=== PATIENT | female | born 1950 | race Caucasian/White ===

== ENCOUNTER 2017-08-20 16:45 | Inpatient (IN) | payer MEDICARE, MEDICAID ==
[2017-08-20 16:46] VITALS: BMI 37.8
[2017-08-20 17:08] VITALS: RESP 20
--- NOTE | 2017-08-20 18:18 | C.PDOC ---
History Of Present Illness 67-year-old female, PMHx includes Diabetes, presents to the emergency department with complaints of facial swelling and pain. Patient states she had a pimple with alarcon on left frontal scalp, which he popped and removed pus from, multiple times over the past twenty-four hours. Patient states that when she woke up this morning, she developed swelling, associated with pain and pressure in her left eye. Denies any nausea/vomiting, dizziness, fevers, chills , or any other associated symptoms. No other complaints at this time. Time Seen by Provider: 08/20/17 17:40 Chief Complaint (Nursing): Headache History Per: Patient, Family History/Exam Limitations: no limitations Onset/Duration Of Symptoms: Hrs Current Symptoms Are (Timing): Still Present Past Medical History Reviewed: Historical Data, Nursing Documentation, Vital Signs Vital Signs: Last Vital Signs Temp 99.3 F 08/20/17 17:06 Pulse 78 08/20/17 17:06 Resp 20 08/20/17 17:06 BP 186/75 H 08/20/17 17:06 Pulse Ox 100 08/20/17 18:44 - Medical History PMH: Anxiety, Arthritis, Depression, Diabetes, Gall Bladder Disease, HTN, Hypercholesterolemia Surgical History: Cholecystectomy - [facility] Procedures INTRAOPER CHOLANGIOGRAM (05/13/14) LAPAROSCOPIC CHOLECYSTECTOMY (05/13/14) Family History: States: No Known Family Hx - Social History Hx Tobacco Use: No Hx Alcohol Use: No Hx Substance Use: No - Immunization History Hx Tetanus Toxoid Vaccination: No Hx Influenza Vaccination: No Hx Pneumococcal Vaccination: No Review Of Systems Except As Marked, All Systems Reviewed And Found Negative. Constitutional: Negative for: Fever, Chills Respiratory: Negative for: Cough, Shortness of Breath Gastrointestinal: Negative for: Nausea, Vomiting Musculoskeletal: Negative for: Back Pain Skin: Negative for: Rash Neurological: Positive for: Headache. Negative for: Weakness, Numbness, Dizziness Physical Exam - Physical Exam Appears: Non-toxic, No Acute Distress Skin: Warm, Dry, No Rash Head: Swelling (left parietal/temporal area wutg edema and cellulitis. No focal abscess) Eye(s): bilateral: Normal Inspection, PERRL, EOMI Nose: Normal Oral Mucosa: Moist Neck: Normal ROM Chest: Symmetrical Cardiovascular: Rhythm Regular, No Murmur Respiratory: Normal Breath Sounds, No Accessory Muscle Use Extremity: Normal ROM Neurological/Psych: Oriented x3, Normal Speech ED Course And Treatment - Laboratory Results Result Diagrams: 08/20/17 18:38 O2 Sat by Pulse Oximetry: 100 Progress - Data Reviewed Data Reviewed: Lab, Diagnostic imaging Medical Decision Making Medical Decision Making: Plan: * CT Head * EKG * BMP * CBC * Chest X-Ray * Tylenol, Toradol, Morphine, IVFs * Blood Culture * Reassess and Disposition Disposition - Disposition Disposition Time: 19:00 Condition: STABLE Forms: [employer] (Polish) - Clinical Impression Clinical Impression: Cellulitis of scalp, Uncontrolled diabetes mellitus - Scribe Statement The provider has reviewed the documentation as recorded by the Scribe (Vinod Patton) All medical record entries made by the Scribe were at my direction and personally dictated by me. I have reviewed the chart and agree that the record accurately reflects my personal performance of the history, physical exam, medical decision making, and the department course for this patient. I have also personally directed, reviewed, and agree with the discharge instructions and disposition. Physician Patient Turnover Patient Signed Over To: Ed Parsons Handoff Comments: FU CT, LABS, DISPO
[2017-08-20 18:32] LABS: VENOUS BLOOD GAS BASE EXCESS 1.5 mmol/L (0.0-2.0); VENOUS BLOOD GAS PCO2 46 mmHg (40-60); VENOUS BLOOD PH 7.38 (7.32-7.43)
[2017-08-20] MEDS ORDERED: (Novolin R) Insulin Human Regular 100 units/ml vial IV STA (18:41)
[2017-08-20 18:49] LABS: CHLORIDE 95 mmol/L (98-107); POTASSIUM 3.4 mmol/L (3.6-5.2); SODIUM 137 mmol/L (132-148)
[2017-08-20 18:52] LABS: BLOOD UREA NITROGEN 12 mg/dL (7-17); CARBON DIOXIDE 24 mmol/L (22-30); GFR AFRICAN-AMERICAN > 60
[2017-08-20 18:53] LABS: CALCIUM 9.3 mg/dl (8.6-10.4)
[2017-08-20 18:54] LABS: GLUCOSE,RANDOM 494 mg/dL (65-105)
[2017-08-20] MEDS ORDERED: ceFAZolin 1 gm FROZEN Premix 1 GM/50 ML ML IVPB ONE (18:55)
[2017-08-20] MEDS ORDERED: (Novolin R) Insulin Human Regular 100 units/ml vial ONE (18:55)
[2017-08-20] MEDS ORDERED: Sodium Chloride 0.9% 1,000 ML ONE (18:55)
[2017-08-20 18:58] LABS: BASO % 0.6 % (0.0-2.0); EOS # 0.1 K/uL (0.0-0.7); HEMATOCRIT 33.6 % (34.0-47.0); LYMPH # 1.3 K/uL (1.0-4.3); LYMPH % 17.6 % (20.0-40.0); MEAN CORPUSCULAR HEMOGLOBIN 26.2 pg (27.0-31.0); MEAN CORPUSCULAR HGB CONC 33.1 g/dL (33.0-37.0); MEAN PLATELET VOLUME 7.9 fL (7.2-11.7); MONO # 0.3 K/uL (0.0-0.8); MONO % 4.7 % (0.0-10.0); RED CELL DISTRIBUTION WIDTH 14.4 % (11.5-14.5); WHITE BLOOD COUNT 7.2 K/uL (4.8-10.8)
[2017-08-20] MEDS: Sodium Chloride 0.9% 1,000 ML IV SCH (19:06)
[2017-08-20] MEDS ORDERED: Iodixanol 320 MG/ML 100 ML BOTTLE IV ONE (19:31)
--- NOTE | 2017-08-20 22:29 | CP.PCM.HP ---
History of Present Illness - History of Present Illness History of Present Illness: 66-year-old female with PMHanxiety, arthritis, depression, DM, GB disease, HTN and hypercholesterolemia presents to the ER for C/Ofacial swelling. C/Oa pimple with a white spot on the left scalp for a few days, which has pus discharge from it. Since last couple of days it has been producing pus discharge is persistent from it. Today morning when she woke up she noticed her face to be completely swollen and painful. No C/Ofever, nausea, vomiting, headache, confusion, hemoptysis, hematemesis. Past Patient History - Past Medical History & Family History Past Medical History?: Yes - Past Social History Smoking Status: Never Smoked - CARDIAC Hx Hypercholesterolemia: Yes Hx Hypertension: Yes - PULMONARY Hx Respiratory Disorders: No - NEUROLOGICAL Hx Neurological Disorder: No - HEENT Hx HEENT Problems: No - ENDOCRINE/METABOLIC Hx Endocrine Disorders: Yes Hx Diabetes Mellitus Type 2: Yes - HEMATOLOGICAL/ONCOLOGICAL Hx Blood Disorders: No - INTEGUMENTARY Hx Dermatological Problems: No - MUSCULOSKELETAL/RHEUMATOLOGICAL Hx Arthritis: Yes - GASTROINTESTINAL Hx Gall Bladder Disease: Yes - GENITOURINARY/GYNECOLOGICAL Hx Genitourinary Disorders: No - PSYCHIATRIC Hx Anxiety: Yes Hx Depression: Yes Hx Substance Use: No - SURGICAL HISTORY Hx Cholecystectomy: Yes - ANESTHESIA Hx Anesthesia: Yes Hx Anesthesia Reactions: No Hx Malignant Hyperthermia: No Meds Home Medications: Home Medication List Medication Instructions Recorded Confirmed Type Clindamycin [Cleocin] 300 mg PO TID #15 cap 08/29/17 Rx Famciclovir [Famvir] 500 mg PO TID #21 tab 08/29/17 Rx traMADol [Ultram] 50 mg PO TID PRN #15 tab 08/29/17 Rx Allergies/Adverse Reactions: Allergies Allergy/AdvReac Type Severity Reaction Status Date / Time No Known Allergies Allergy Verified 08/20/17 17:34 Physical Exam - Constitutional Appears: Well - Head Exam Head Exam: ATRAUMATIC, NORMAL INSPECTION, NORMOCEPHALIC - Eye Exam Eye Exam: EOMI, Normal appearance, PERRL - ENT Exam ENT Exam: Mucous Membranes Moist, Normal Exam - Neck Exam Neck exam: Positive for: Normal Inspection - Respiratory Exam Respiratory Exam: Decreased Breath Sounds - Cardiovascular Exam Cardiovascular Exam: REGULAR RHYTHM - GI/Abdominal Exam GI & Abdominal Exam: Diminished Bowel Sounds - Rectal Exam Rectal Exam: Deferred Results - Vital Signs Recent Vital Signs: Last Vital Signs Temp 98.4 F 08/20/17 21:44 Pulse 72 08/20/17 21:44 Resp 20 08/20/17 21:44 BP 134/75 08/20/17 21:44 Pulse Ox 100 08/20/17 21:44 - Labs Result Diagrams: 08/29/17 11:46 08/29/17 11:46 Labs: Laboratory Results - last 24 hr 08/20/17 08/20/17 08/20/17 18:29 18:38 18:38 WBC 7.2 RBC 4.25 Hgb 11.1 Hct 33.6 L MCV 79.0 L MCH 26.2 L MCHC 33.1 RDW 14.4 Plt Count 246 MPV 7.9 Neut % (Auto) 76.1 H Lymph % (Auto) 17.6 L [place] % (Auto) 4.7 Eos % (Auto) 1.0 Baso % (Auto) 0.6 Neut # 5.5 Lymph # 1.3 [place] # 0.3 Eos # 0.1 Baso # 0.0 pO2 30 VBG pH 7.38 VBG pCO2 46 VBG HCO3 25.0 VBG Total CO2 28.6 H VBG O2 Sat (Calc) 68.5 H VBG Base Excess 1.5 VBG Potassium 3.7 Sodium 137.0 137 Chloride 103.0 95 L Glucose 480 H* Lactate 3.6 H Crit Value Called To klarissa Grayson/rn Crit Value Called By Ines theodore rcp Crit Value Read Back Y Blood Gas Notified Time 1832 Potassium 3.4 L Carbon Dioxide 24 Anion Gap 21 H BUN 12 Creatinine 0.8 Est GFR ( Amer) > 60 Est GFR (Non-Af Amer) > 60 POC Glucose (mg/dL) Random Glucose 494 H* D Calcium 9.3 Venous Blood Potassium 3.7 08/20/17 21:37 WBC RBC Hgb Hct MCV MCH MCHC RDW Plt Count MPV Neut % (Auto) Lymph % (Auto) [place] % (Auto) Eos % (Auto) Baso % (Auto) Neut # Lymph # [place] # Eos # Baso # pO2 VBG pH VBG pCO2 VBG HCO3 VBG Total CO2 VBG O2 Sat (Calc) VBG Base Excess VBG Potassium Sodium Chloride Glucose Lactate Crit Value Called To Crit Value Called By Crit Value Read Back Blood Gas Notified Time Potassium Carbon Dioxide Anion Gap BUN Creatinine Est GFR ( Amer) Est GFR (Non-Af Amer) POC Glucose (mg/dL) 462 H* Random Glucose Calcium Venous Blood Potassium Assessment & Plan (1) Cellulitis of scalp Status: Acute (2) Uncontrolled diabetes mellitus Status: Acute (3) Anxiety Status: Acute (4) Chest pain in adult Status: Acute (5) Cholecystitis Status: Acute (6) Depression with somatization Status: Acute (7) Diabetes mellitus Status: Acute (8) Muscle weakness Status: Acute (9) Obstructive sleep apnea of adult Status: Acute (10) Panic anxiety syndrome Status: Acute (11) Skin irritation Status: Acute (12) Syncope Status: Acute
[2017-08-20] MEDS ORDERED: Piperacill/Tazo 3.375gm in Dex 3.375 GM/50 ML BAG IVPB SCH (22:45)
[2017-08-21] MEDS: Piperacill/Tazo 3.375gm in Dex 3.375 GM/50 ML BAG IVPB SCH ×5 (01:00→23:58)
[2017-08-21] MEDS: (Novolog) Insulin Aspart, Recombinant 100 u/ml 10 ml vial SC SCH ×4 (08:11→22:00)
--- NOTE | 2017-08-21 08:58 | RAD ---
PROCEDURE: CHEST RADIOGRAPH, 1 VIEW HISTORY: Medical clearance COMPARISON: None available. FINDINGS: LUNGS: Mild venous congestion. Right hilar prominence. Biapical pleural thickening. PLEURA: No pneumothorax or pleural fluid seen. CARDIOVASCULAR: Tortuous ectatic aorta. Calcification at the aortic knob. Mild cardiomegaly. OSSEOUS STRUCTURES: No significant abnormalities. VISUALIZED UPPER ABDOMEN: Normal. OTHER FINDINGS: None. IMPRESSION: Mild venous congestion. Right hilar prominence. Biapical pleural thickening.
[2017-08-21] MEDS: Sodium Chloride 0.9% 1,000 ML IV SCH ×3 (09:00→23:53)
--- NOTE | 2017-08-21 09:24 | CT ---
PROCEDURE: CT NECK WITH CONTRAST HISTORY: L TEMP PARIETAL SWELLING HO DM RO ABSCESS COMPARISON: None TECHNIQUE: CT of the neck with intravenous contrast. Coronal and sagittal reformats generated. Intravenous contrast dose: Visipaque 320, 100 cc. Radiation dose: DLP 461.85 mGy-cm This CT exam was performed using one or more of the following dose reduction techniques: Automated exposure control, adjustment of the mA and/or kV according to patient size, and/or use of iterative reconstruction technique. FINDINGS: NASOPHARYNX: Unremarkable. SUPRAHYOID NECK: Unremarkable oropharynx, oral cavity, parapharyngeal space and retropharyngeal space. INFRAHYOID NECK: Unremarkable larynx, hypopharynx, and supraglottic space. Vocal cords intact. MASS: 3.8 cm left thyroid lobe mass. Follow-up ultrasound advised. GLANDS: Parotid and submandibular glands unremarkable. Normal size thyroid gland, without nodule. LYMPH NODES: Normal. No lymphadenopathy. CERVICAL SPINE: No fracture or focal lesion. VASCULAR STRUCTURES: Unremarkable. OTHER FINDINGS: Note is made of marked dermal thickening at the left frontoparietal distribution extending to minimally involve the septal scalp with likely underlying phlegmon involving the deep subcutaneous fat at the same distribution of the scalp. Lesser subcutaneous changes extend to overlie the left base including the temporal and perirectal region and lateral parity orbital soft tissue in the preseptal space only. No postseptal involvement. Left posterior neck soft tissues are minimally involved as well No obvious abscess or emphysematous changes related. Clinically correlate further. IMPRESSION: Minimal left lateral periorbital cellulitis with prominent left scalp convexity cellulitis appreciated primarily involving the frontal parietal distribution without obvious abscess appreciable. Periorbital cellulitis is preseptal without postseptal involvement as imaged. Please see discussion above.
[2017-08-21] MEDS ORDERED: HYDROmorphone 0.5 mg/0.5 ml ISec IVP PRN (10:00)
[2017-08-21] MEDS: Enoxaparin 40 mg Syringe SC SCH (10:01)
[2017-08-21] MEDS: NIFEdipine 90 mg ER Tab PO SCH (10:01)
--- NOTE | 2017-08-21 10:47 | CP.PCM.PN ---
<Ankit Bowers - Last Filed: 08/21/17 13:20> Subjective - Date & Time of Evaluation Date of Evaluation: 08/21/17 Time of Evaluation: 10:43 - Subjective Subjective: PGY-[address] Lau's service: Pt seen and examined at bedside. Patient found sitting at bedside, agitated. Nursing reports no acute events overnight. She reports pain in left scalp area is getting worse "and no one doing anything about it." Patient reassured that antibiotics were running. Patient states she cannot wear glasses due to pain. She denies vision changes, fever, chills, nausea, abdominal pain, N/V/D/C. Patient is a 67-year-old female, with PMHx of type two diabetes mellitus, anxiety, presents to the emergency department with complaints of facial swelling and pain. Patient states she had a pimple with alarcon on left frontal scalp, which he popped and removed pus from, multiple times over the past twenty-four hours. Patient states that when she woke up this morning, she developed swelling, associated with pain and pressure in her left eye. Denies any nausea/vomiting, dizziness, fevers, chills, or any other associated symptoms. No other complaints at this time. Objective - Vital Signs/Intake and Output Vital Signs (last 24 hours): Temp Pulse Resp BP Pulse Ox 98.1 F 71 20 153/77 H 96 08/21/17 00:00 08/21/17 00:00 08/21/17 00:00 08/21/17 00:00 08/21/17 00:00 Intake and Output: 08/21/17 08/21/17 06:59 18:59 Intake Total 1500 Balance 1500 - Medications Medications: Current Medications Alprazolam (Xanax) 0.5 mg PO HS PRN PRN Reason: Anxiety Aspirin (Aspirin Chewable) 81 mg PO DAILY [facility] Last Admin: 08/21/17 10:01 Dose: 81 mg Clopidogrel Bisulfate (Plavix) 75 mg PO DAILY [facility] Last Admin: 08/21/17 10:01 Dose: 75 mg Enoxaparin Sodium (Lovenox) 40 mg SC DAILY [facility] Last Admin: 08/21/17 10:01 Dose: 40 mg Famotidine (Pepcid) 20 mg PO BID [facility] Last Admin: 08/21/17 10:01 Dose: 20 mg Fenofibrate (Tricor) 145 mg PO DAILY [facility] Last Admin: 08/21/17 10:01 Dose: 145 mg Glimepiride (Amaryl) 4 mg PO BID [facility] Last Admin: 08/21/17 10:01 Dose: 4 mg Home Med (Novolog Mix 70/30) 25 units SC BID PRN PRN Reason: Serum glucose Hydromorphone HCl (Dilaudid) 1 mg IVP Q8H PRN PRN Reason: Pain, severe (8-10) Last Admin: 08/21/17 10:02 Dose: 1 mg Sodium Chloride (Sodium Chloride 0.9%) 1,000 mls @ 200 mls/hr IV .Q5H [facility] Last Admin: 08/21/17 09:00 Dose: 200 mls/hr Piperacillin Sod/Tazobactam Sod (Zosyn 3.375 Gm Iv Premix) 3.375 gm in 50 mls @ 100 mls/hr IVPB Q6 [facility] Last Admin: 08/21/17 06:10 Dose: 100 mls/hr Ibuprofen (Motrin Tab) 400 mg PO TID PRN PRN Reason: Pain, moderate (4-7) Insulin Aspart (Novolog) 0 unit SC ACHS [facility] PRN Reason: Protocol Last Admin: 08/21/17 08:11 Dose: Not Given Insulin Glargine (Lantus) 15 unit SC HS [facility] Methadone HCl (Methadone) 10 mg PO BID PRN PRN Reason: Pain, severe (8-10) Last Admin: 08/21/17 00:05 Dose: 10 mg Nifedipine (Procardia Xl) 90 mg PO DAILY [facility] Last Admin: 08/21/17 10:01 Dose: 90 mg Pneumococcal Polyvalent Vaccine (Pneumovax 23 Vaccine) 0.5 ml IM .ONCE ONE Stop: 08/22/17 10:01 Rosuvastatin Calcium (Crestor) 10 mg PO HS [facility] Sertraline HCl (Zoloft) 100 mg PO DAILY [facility] Last Admin: 08/21/17 10:01 Dose: 100 mg Sitagliptin Phosphate (Januvia) 100 mg PO DAILY [facility] Last Admin: 08/21/17 10:12 Dose: 100 mg - Labs Labs: 08/20/17 18:38 08/20/17 18:38 - Constitutional Appears: Non-toxic, No Acute Distress - Head Exam Head Exam: ATRAUMATIC. absent: NORMAL INSPECTION Additional comments: Left parietal/temporal area - edema - no crepitus, no abscess - Eye Exam Eye Exam: EOMI. absent: Scleral icterus Pupil Exam: PERRL - ENT Exam ENT Exam: Mucous Membranes Moist - Neck Exam Neck Exam: Full ROM - Respiratory Exam Respiratory Exam: Clear to Ausculation Bilateral, NORMAL BREATHING PATTERN. absent: Rales, Rhonchi, Wheezes - Cardiovascular Exam Cardiovascular Exam: REGULAR RHYTHM, +S1, +S2 - GI/Abdominal Exam GI & Abdominal Exam: Soft, Normal Bowel Sounds. absent: Tenderness - Extremities Exam Extremities Exam: Normal Inspection. absent: Pedal Edema - Back Exam Back Exam: absent: CVA tenderness (L), CVA tenderness (R) - Neurological Exam Neurological Exam: Alert, Awake, Oriented x3 - Psychiatric Exam Psychiatric exam: Normal Affect, Normal Mood - Skin Skin Exam: Normal Color, Warm Additional comments: except noted in facial area Assessment and Plan - Assessment and Plan (Free Text) Plan: Valeria-orbital cellulitis Admit to med-surg CT Neck soft tissue (08/21/17): Minimal left lateral periorbital cellulitis with prominent left scalp convexity cellultiis primairily involving the frontal parietal distribution without obvious abscess. Cellitius is preseptal without post-septal involvement (see full report). Zosyn 3.375 gm IV Q6H (first dose: 08/21/17) - Cefazolin given once in ED Dr. Montalvo, ID independent crop consultant, hep appreciated - Start Acyclovir 500mg IV Q8H - Start Vancomycin 1gm IV Q12H - Droplet/Contact Isolation per ID Dilaudid 1mg IVP q4H PRN for pain f/u blood culture CAD Plavix 75mg PO Daily Crestor 10mg PO HS ASA 81mg PO Daily - f/u Lipid Panel Type two diabetes mellitus Accuchecks Amaryl 4mg PO BID Januvia 100mg PO Daily Novolog 70/30 25 units SC BID Lantus 15 units SC HS ISS - aspart -f/u A1C Hypertriglyceridemia Tricor 145mg PO Daily Depression Zoloft 100mg PO Daily Prophylaxis Lovenox 40mg SC Daily Pepcid 20mg PO BID Ankit Bowers PGY-2 Discussed with attending. All medical managment per Dr. Lester Lau. <Sinai Lau - Last Filed: 10/04/17 18:33> Objective - Vital Signs/Intake and Output Vital Signs (last 24 hours): Temp Pulse Resp BP Pulse Ox 99.2 F 60 20 149/75 95 08/29/17 08:17 08/29/17 08:17 08/29/17 08:17 08/29/17 08:17 08/29/17 08:17 - Labs Labs: 08/29/17 11:46 08/29/17 11:46 Assessment and Plan (1) Cellulitis of scalp Status: Acute (2) Uncontrolled diabetes mellitus Status: Acute (3) Anxiety Status: Acute (4) Chest pain in adult Status: Acute (5) Cholecystitis Status: Acute (6) Depression with somatization Status: Acute (7) Diabetes mellitus Status: Acute (8) Muscle weakness Status: Acute (9) Obstructive sleep apnea of adult Status: Acute (10) Panic anxiety syndrome Status: Acute (11) Skin irritation Status: Acute (12) Syncope Status: Acute Attending/Attestation - Attestation I have personally seen and examined this patient.: Yes I have fully participated in the care of the patient.: Yes I have reviewed all pertinent clinical information, including history, physical exam and plan: Yes Notes (Text): CT scan of neck suggestive of left lateral periorbital cellulitis with prominent left scalp cellulitis primary involving the frontal parietal distribution. Random blood sugar on admission was 480. Increased lactate at 3.6. ID consult done. Advised to start acyclovir and vancomycin. Continue piperacillin and tazobactam. Continue aspirin, antidiabetic medications, hypo-lipidemic medications and medications for depression.
[2017-08-21] MEDS ORDERED: (Novolog) Insulin Aspart, Recombinant 100 u/ml 10 ml vial SC SCH (12:00)
--- NOTE | 2017-08-21 12:28 | CP.PCM.CON ---
History of Present Illness - History of Present Illness History of Present Illness: 67-year-old female, PMHx includes Diabetes, presents to the emergency department with complaints of facial swelling and pain. Patient states she had a pimple with alarcon on left frontal scalp, which he popped and removed pus from, multiple times over the past twenty-four hours. Patient states that when she woke up this morning, she developed swelling, associated with pain and pressure in her left eye. Denies any nausea/vomiting, dizziness, fevers, chills , or any other associated symptoms. No other complaints at this time. - Medical History PMH: Anxiety, Arthritis, Depression, Diabetes, Gall Bladder Disease, HTN, Hypercholesterolemia Surgical History: Cholecystectomy - [facility] Procedures INTRAOPER CHOLANGIOGRAM (05/13/14) LAPAROSCOPIC CHOLECYSTECTOMY (05/13/14) Review of Systems - Constitutional Constitutional: As Per HPI - EENT Eyes: absent: As Per HPI, Blind Spots, Blurred Vision, Change in Vision, Decreased Night Vision, Diplopia, Discharge, Dry Eye, Exophthalmos, Floaters, Irritation, Itchy Eyes, Loss of Peripheral Vision, Pain, Photophobia, Requires Corrective Lenses, Sees Flashes, Spots in Vision, Tunnel Vision, Other Visual Disturbances, Loss of Vision, Other Ears: absent: As Per HPI, Decreased Hearing, Ear Discharge, Ear Pain, Tinnitus, Abnormal Hearing, Disequilibrium, Dizziness, Other Nose/Mouth/Throat: absent: As Per HPI, Epistaxis, Nasal Congestion, Nasal Discharge, Nasal Obstruction, Nasal Trauma, Nose Pain, Post Nasal Drip, Sinus Pain, Sinus Pressure, Bleeding Gums, Change in Voice, Dental Pain, Dry Mouth, Dysphagia, Halitosis, Hoarsness, Lip Swelling, Mouth Lesions, Mouth Pain, Odynophagia, Sore Throat, Throat Swelling, Tongue Swelling, Facial Pain, Neck Pain, Neck Mass, Other - Breasts Breasts: absent: As Per HPI, Change in Shape, Mass, Pain, Nipple Discharge, Nipple Inversion, Skin Changes, Swelling, Other - Cardiovascular Cardiovascular: absent: As Per HPI, Acrocyanosis, Chest Pain, Chest Pain at Rest , Chest Pain with Activity, Claudication, Diaphoresis, Dyspnea, Dyspnea on Exertion, Edema, Irregular Heart Rhythm, Pain Radiating to Arm/Neck/Jaw, Leg Edema, Leg Ulcers, Lightheadedness, Orthopnea, Palpitations, Paroxysmal Nocturnal Dyspnea, Pedal Edema, Radiating Pain, Rapid Heart Rate, Slow Heart Rate, Syncope, Other - Respiratory Respiratory: absent: As Per HPI, Cough, Dyspnea, Hemoptysis, Dyspnea on Exertion , Wheezing, Snoring, Stridor, Pain on Inspiration, Chest Congestion, Excessive Mucous Production, Change in Mucous Color, Pain with Coughing, Other - Gastrointestinal Gastrointestinal: absent: As Per HPI, Abdominal Pain, Belching, Bloating, Change in Bowel Habits, Change in Stool Character, Coffee Ground Emesis, Constipation, Cramping, Diarrhea, Dyspepsia, Dysphagia, Early Satiety, Excessive Flatus, Fecal Incontinence, Heartburn, Hematemesis, Hematochezia, Loose Stools, Melena, Nausea, Odynophagia, Temesmus, Vomiting, Other - Genitourinary Genitourinary: absent: As Per HPI, Change in Urinary Stream, Difficulty Urinating, Dysuria, Flank Pain, Hematuria, Pyuria, Nocturia, Urinary Incontinence, Urinary Frequency, Urinary Hesitance, Urinary Urgency, Voiding Freq/Small Amts, Freq UTI, Hx Renal/Bladder Calculi, Hx /Renal Surgery, Bladder Distension, Other - Reproductive: Female Reproductive:Female: absent: As Per HPI, Amenorrhea, Amenorrhea/ Control, Currently Menstual, Cycle <21 Days, Cycle >35 Days, Cycle Variable, Menses 1-7 Days, Menses >/= 8 Days, Menses Variable, Cycle > 4 Weeks Between, No Menses for 6 Months, Heavy Menses, Light Menses, Normal Menses, Spotting Between Cycles , S/P Hysterectomy, Menopausal, Post Menopausal, Premenarche, Abnormal Vaginal Bleeding, Dysmenorrhea, Dyspareunia, Genital Lesions, Genital Pruritis, Pelvic Pain, Prolapse Symptoms, Sexual Dysfunction, Vaginal Discharge, Vaginal Dryness , Vaginal Odor, Vaginal Pruritis, Other - Menstruation Menstruation: absent: As Per HPI, Amenorrhea, Amenorrhea/ Control, Currently Menstual, Cycle <21 Days, Cycle >35 Days, Cycle Variable, Menses 1-7 Days, Menses >/= 8 Days, Menses Variable, Cycle > 4 Weeks Between, No Menses for 6 Months, Heavy Menses, Light Menses, Normal Menses, Spotting Between Cycles , S/P Hysterectomy, Menopausal, Post Menopausal, Premenarche, Abnormal Vaginal Bleeding, Dysmenorrhea, Other - Musculoskeletal Musculoskeletal: As Per HPI - Integumentary Integumentary: As Per HPI - Neurological Neurological: absent: As Per HPI, Abnormal Gait, Abnormal Hearing, Abnormal Movements, Abnormal Speech, Behavioral Changes, Burning Sensations, Confusion, Convulsions, Disequilibrium, Dizziness, Numbness, Focal Weakness, Frequent Falls , Headaches, Lack of Coordination, Loss of Vision, Memory Loss, Paresthesias, Radicular Pain, Restless Legs, Sensory Deficit, Syncope, Tingling, Tremor, Vertigo, Weakness, Other Visual Disturbances, Other - Psychiatric Psychiatric: absent: As Per HPI, Abnormal Sleep Pattern, Anhedonia, Anxiety, Auditory Hallucinations, Behavioral Changes, Change in Appetite, Change in Libido, Confusion, Depression, Difficulty Concentrating, Hallucinations, Homicidal Ideation, Hopelessness, Irritability, Memory Loss, Mood Swings, Panic Attacks, Paranoia, Suicidal Ideation, Visual Hallucinations, Tactile Hallucinations, Other - Endocrine Endocrine: absent: As Per HPI, Change in Body Appearance, Change in Libido, Cold Intolorance, Deepening of Voice, Excessive Sweating, Fatigue, Flushing, Heat Intolorance, Increase in Ring/Shoe/Hat Size, Palpitations, Polydipsia, Polyphagia, Polyuria, Other Past Patient History - Past Medical History & Family History Past Medical History?: Yes - Past Social History Smoking Status: Never Smoked - CARDIAC Hx Cardiac Disorders: Yes Hx Hypercholesterolemia: Yes Hx Hypertension: Yes - PULMONARY Hx Respiratory Disorders: No - NEUROLOGICAL Hx Neurological Disorder: No - HEENT Hx HEENT Problems: No - RENAL Hx Chronic Kidney Disease: No - ENDOCRINE/METABOLIC Hx Endocrine Disorders: Yes Hx Diabetes Mellitus Type 2: Yes - HEMATOLOGICAL/ONCOLOGICAL Hx Blood Disorders: No - INTEGUMENTARY Hx Dermatological Problems: No - MUSCULOSKELETAL/RHEUMATOLOGICAL Hx Musculoskeletal Disorders: Yes Hx Arthritis: Yes Hx Falls: Yes - GASTROINTESTINAL Hx Gastrointestinal Disorders: Yes Hx Gall Bladder Disease: Yes - GENITOURINARY/GYNECOLOGICAL Hx Genitourinary Disorders: No - PSYCHIATRIC Hx Psychophysiologic Disorder: Yes Hx Anxiety: Yes Hx Depression: Yes Hx Substance Use: No - SURGICAL HISTORY Hx Surgeries: Yes Hx Cholecystectomy: Yes - ANESTHESIA Hx Anesthesia: Yes Hx Anesthesia Reactions: No Hx Malignant Hyperthermia: No Meds Allergies/Adverse Reactions: Allergies Allergy/AdvReac Type Severity Reaction Status Date / Time No Known Allergies Allergy Verified 08/20/17 17:34 - Medications Medications: Current Medications Alprazolam (Xanax) 0.5 mg PO HS PRN PRN Reason: Anxiety Aspirin (Aspirin Chewable) 81 mg PO DAILY [facility] Last Admin: 08/21/17 10:01 Dose: 81 mg Clopidogrel Bisulfate (Plavix) 75 mg PO DAILY [facility] Last Admin: 08/21/17 10:01 Dose: 75 mg Enoxaparin Sodium (Lovenox) 40 mg SC DAILY [facility] Last Admin: 08/21/17 10:01 Dose: 40 mg Famotidine (Pepcid) 20 mg PO BID [facility] Last Admin: 08/21/17 10:01 Dose: 20 mg Fenofibrate (Tricor) 145 mg PO DAILY [facility] Last Admin: 08/21/17 10:01 Dose: 145 mg Glimepiride (Amaryl) 4 mg PO BID [facility] Last Admin: 08/21/17 10:01 Dose: 4 mg Home Med (Novolog Mix 70/30) 25 units SC BID PRN PRN Reason: Serum glucose Hydromorphone HCl (Dilaudid) 1 mg IVP Q8H PRN PRN Reason: Pain, severe (8-10) Last Admin: 08/21/17 10:02 Dose: 1 mg Sodium Chloride (Sodium Chloride 0.9%) 1,000 mls @ 200 mls/hr IV .Q5H [facility] Last Admin: 08/21/17 09:00 Dose: 200 mls/hr Piperacillin Sod/Tazobactam Sod (Zosyn 3.375 Gm Iv Premix) 3.375 gm in 50 mls @ 100 mls/hr IVPB Q6 [facility] Last Admin: 08/21/17 12:08 Dose: 100 mls/hr Ibuprofen (Motrin Tab) 400 mg PO TID PRN PRN Reason: Pain, moderate (4-7) Insulin Aspart (Novolog) 0 unit SC ACHS [facility] PRN Reason: Protocol Last Admin: 08/21/17 12:09 Dose: 10 unit Insulin Glargine (Lantus) 15 unit SC HS [facility] Methadone HCl (Methadone) 10 mg PO BID PRN PRN Reason: Pain, severe (8-10) Last Admin: 08/21/17 00:05 Dose: 10 mg Nifedipine (Procardia Xl) 90 mg PO DAILY [facility] Last Admin: 08/21/17 10:01 Dose: 90 mg Pneumococcal Polyvalent Vaccine (Pneumovax 23 Vaccine) 0.5 ml IM .ONCE ONE Stop: 08/22/17 10:01 Rosuvastatin Calcium (Crestor) 10 mg PO [facility] Sertraline HCl (Zoloft) 100 mg PO DAILY [facility] Last Admin: 08/21/17 10:01 Dose: 100 mg Sitagliptin Phosphate (Januvia) 100 mg PO DAILY [facility] Last Admin: 08/21/17 10:12 Dose: 100 mg Physical Exam - Constitutional Appears: Chronically Ill - Head Exam Head Exam: ATRAUMATIC, NORMOCEPHALIC. absent: NORMAL INSPECTION - Eye Exam Eye Exam: PERRL, Scleral icterus - ENT Exam ENT Exam: Mucous Membranes Dry, Normal External Ear Exam - Neck Exam Neck exam: Negative for: Lymphadenopathy, Thyromegaly - Respiratory Exam Respiratory Exam: Decreased Breath Sounds, Clear to Auscultation Bilateral - Cardiovascular Exam Cardiovascular Exam: REGULAR RHYTHM - GI/Abdominal Exam GI & Abdominal Exam: Diminished Bowel Sounds - Rectal Exam Rectal Exam: Deferred - Exam Exam: NORMAL INSPECTION - Extremities Exam Extremities exam: Negative for: calf tenderness, pedal edema, tenderness - Back Exam Back exam: absent: CVA tenderness (L), CVA tenderness (R) - Neurological Exam Neurological exam: Alert, CN II-XII Intact, Oriented x3, Reflexes Normal - Psychiatric Exam Psychiatric exam: Normal Mood - Skin Skin Exam: Dry Results - Vital Signs Recent Vital Signs: Last Vital Signs Temp 98.1 F 08/21/17 00:00 Pulse 71 08/21/17 00:00 Resp 20 08/21/17 00:00 BP 153/77 H 08/21/17 00:00 Pulse Ox 96 08/21/17 00:00 - Labs Result Diagrams: 08/20/17 18:38 08/20/17 18:38 Labs: Laboratory Results - last 24 hr 08/20/17 08/20/17 08/20/17 18:29 18:38 18:38 WBC 7.2 RBC 4.25 Hgb 11.1 Hct 33.6 L MCV 79.0 L MCH 26.2 L MCHC 33.1 RDW 14.4 Plt Count 246 MPV 7.9 Neut % (Auto) 76.1 H Lymph % (Auto) 17.6 L [place] % (Auto) 4.7 Eos % (Auto) 1.0 Baso % (Auto) 0.6 Neut # 5.5 Lymph # 1.3 [place] # 0.3 Eos # 0.1 Baso # 0.0 pO2 30 VBG pH 7.38 VBG pCO2 46 VBG HCO3 25.0 VBG Total CO2 28.6 H VBG O2 Sat (Calc) 68.5 H VBG Base Excess 1.5 VBG Potassium 3.7 Sodium 137.0 137 Chloride 103.0 95 L Glucose 480 H* Lactate 3.6 H Crit Value Called To klarissa Grayson/rn Crit Value Called By Ines theodore rcp Crit Value Read Back Y Blood Gas Notified Time 1832 Potassium 3.4 L Carbon Dioxide 24 Anion Gap 21 H BUN 12 Creatinine 0.8 Est GFR ( Amer) > 60 Est GFR (Non-Af Amer) > 60 POC Glucose (mg/dL) Random Glucose 494 H* D Calcium 9.3 Venous Blood Potassium 3.7 08/20/17 08/21/17 21:37 11:36 WBC RBC Hgb Hct MCV MCH MCHC RDW Plt Count MPV Neut % (Auto) Lymph % (Auto) [place] % (Auto) Eos % (Auto) Baso % (Auto) Neut # Lymph # [place] # Eos # Baso # pO2 VBG pH VBG pCO2 VBG HCO3 VBG Total CO2 VBG O2 Sat (Calc) VBG Base Excess VBG Potassium Sodium Chloride Glucose Lactate Crit Value Called To Crit Value Called By Crit Value Read Back Blood Gas Notified Time Potassium Carbon Dioxide Anion Gap BUN Creatinine Est GFR ( Amer) Est GFR (Non-Af Amer) POC Glucose (mg/dL) 462 H* 465 H* Random Glucose Calcium Venous Blood Potassium Assessment & Plan (1) Cellulitis of scalp Status: Acute (2) Uncontrolled diabetes mellitus Status: Acute - Assessment and Plan (Free Text) Assessment: r/o Varicella zoster add acyclovir isolate
[2017-08-21] MEDS ORDERED: Vancomycin 1 gm/NS 200 ml 1 GM/200 ML BAG IVPB SCH (13:00)
[2017-08-21] MEDS ORDERED: HYDROmorphone 0.5 mg/0.5 ml ISec IVP ONE (13:51)
[2017-08-21] MEDS: Acyclovir 500 MG in Dextrose 5% In Water 100 ML IV SCH ×2 (14:09→22:35)
[2017-08-21 14:25] LABS: BASO % 0.4 % (0.0-2.0); EOS # 0.1 K/uL (0.0-0.7); EOS % 1.2 % (0.0-4.0); HEMATOCRIT 32.2 % (34.0-47.0); LYMPH # 1.7 K/uL (1.0-4.3); MEAN CELL VOLUME 77.7 fL (81.0-99.0); MEAN CORPUSCULAR HEMOGLOBIN 26.3 pg (27.0-31.0); MEAN CORPUSCULAR HGB CONC 33.9 g/dL (33.0-37.0); MEAN PLATELET VOLUME 7.5 fL (7.2-11.7); MONO # 0.3 K/uL (0.0-0.8); MONO % 3.7 % (0.0-10.0); RED CELL DISTRIBUTION WIDTH 14.7 % (11.5-14.5); WHITE BLOOD COUNT 8.6 K/uL (4.8-10.8)
[2017-08-21] MEDS: Vancomycin 1 gm/NS 200 ml 1 GM/200 ML BAG IVPB SCH (14:29)
[2017-08-21 14:31] LABS: CHLORIDE 99 mmol/L (98-107); SODIUM 140 mmol/L (132-148)
[2017-08-21 14:33] LABS: BILIRUBIN,TOTAL 0.4 mg/dL (0.2-1.3); GFR AFRICAN-AMERICAN > 60
[2017-08-21 14:34] LABS: ALB/GLOB RATIO 1.1 (1.0-2.1); ALKALINE PHOSPHATASE 85 U/L (38-126); ALT/SGPT 23 U/L (9-52); AST/SGOT 17 U/L (14-36); BLOOD UREA NITROGEN 10 mg/dL (7-17); CARBON DIOXIDE 27 mmol/L (22-30); GLUCOSE,RANDOM 264 mg/dL (65-105); PHOSPHOROUS 1.6 mg/dL (2.5-4.5); TOTAL PROTEIN 7.1 g/dL (6.3-8.3)
[2017-08-21 14:35] LABS: CALCIUM 8.9 mg/dl (8.6-10.4); MAGNESIUM 1.6 mg/dL (1.6-2.3)
[2017-08-21] MEDS: HYDROmorphone 0.5 mg/0.5 ml ISec IVP PRN ×2 (18:19→23:55)
--- NOTE | 2017-08-21 18:23 | CP.PCM.PN ---
Subjective - Date & Time of Evaluation Date of Evaluation: 08/21/17 Time of Evaluation: 09:20 - Subjective Subjective: clinically same. Objective - Vital Signs/Intake and Output Vital Signs (last 24 hours): Temp Pulse Resp BP Pulse Ox 98 F 71 20 163/74 H 97 08/21/17 16:00 08/21/17 16:00 08/21/17 16:00 08/21/17 16:00 08/21/17 16:00 Intake and Output: 08/21/17 08/21/17 06:59 18:59 Intake Total 1500 2250 Balance 1500 2250 - Medications Medications: Current Medications Alprazolam (Xanax) 0.5 mg PO HS PRN PRN Reason: Anxiety Aspirin (Aspirin Chewable) 81 mg PO DAILY [facility] Last Admin: 08/21/17 10:01 Dose: 81 mg Clopidogrel Bisulfate (Plavix) 75 mg PO DAILY [facility] Last Admin: 08/21/17 10:01 Dose: 75 mg Enoxaparin Sodium (Lovenox) 40 mg SC DAILY [facility] Last Admin: 08/21/17 10:01 Dose: 40 mg Famotidine (Pepcid) 20 mg PO BID [facility] Last Admin: 08/21/17 17:41 Dose: 20 mg Fenofibrate (Tricor) 145 mg PO DAILY [facility] Last Admin: 08/21/17 10:01 Dose: 145 mg Glimepiride (Amaryl) 4 mg PO BID [facility] Last Admin: 08/21/17 17:41 Dose: 4 mg Hydromorphone HCl (Dilaudid) 0.5 mg IVP Q6H PRN PRN Reason: pain Sodium Chloride (Sodium Chloride 0.9%) 1,000 mls @ 200 mls/hr IV .Q5H [facility] Last Admin: 08/21/17 15:02 Dose: 200 mls/hr Piperacillin Sod/Tazobactam Sod (Zosyn 3.375 Gm Iv Premix) 3.375 gm in 50 mls @ 100 mls/hr IVPB Q6 [facility] Last Admin: 08/21/17 17:43 Dose: 100 mls/hr Acyclovir 500 mg/ Dextrose 100 mls @ 100 mls/hr IV Q8H [facility] Last Admin: 08/21/17 14:09 Dose: 100 mls/hr Vancomycin/Sodium Chloride (Vancocin) 1 gm in 200 mls @ 133.333 mls/hr IVPB Q12H [facility] Last Admin: 08/21/17 14:29 Dose: 133.333 mls/hr Ibuprofen (Motrin Tab) 400 mg PO TID PRN PRN Reason: Pain, moderate (4-7) Insulin Aspart (Novolog Mix 70/30 (70/30 Units/Ml)) 25 units SC BIDAC [facility] Insulin Aspart (Novolog) 0 unit SC ACHS [facility] PRN Reason: Protocol Last Admin: 08/21/17 17:57 Dose: 6 unit Insulin Glargine (Lantus) 15 unit SC HS [facility] Methadone HCl (Methadone) 10 mg PO BID PRN PRN Reason: Pain, severe (8-10) Last Admin: 08/21/17 00:05 Dose: 10 mg Nifedipine (Procardia Xl) 90 mg PO DAILY [facility] Last Admin: 08/21/17 10:01 Dose: 90 mg Pneumococcal Polyvalent Vaccine (Pneumovax 23 Vaccine) 0.5 ml IM .ONCE ONE Stop: 08/22/17 10:01 Rosuvastatin Calcium (Crestor) 10 mg PO HS [facility] Sertraline HCl (Zoloft) 100 mg PO DAILY [facility] Last Admin: 08/21/17 10:01 Dose: 100 mg Sitagliptin Phosphate (Januvia) 100 mg PO DAILY [facility] Last Admin: 08/21/17 10:12 Dose: 100 mg Tramadol HCl (Ultram) 50 mg PO TID PRN PRN Reason: Pain, moderate (4-7) - Labs Labs: 08/21/17 14:13 08/21/17 14:13 - Extremities Exam Extremities Exam: Full ROM, Normal Capillary Refill, Normal Inspection. absent : Joint Swelling, Pedal Edema - Back Exam Back Exam: NORMAL INSPECTION - Neurological Exam Neurological Exam: Alert, Awake, CN II-XII Intact, Normal Gait, Oriented x3 - Psychiatric Exam Psychiatric exam: Normal Affect, Normal Mood - Skin Skin Exam: Dry, Intact, Normal Color, Warm Assessment and Plan (1) Cellulitis of scalp Status: Acute (2) Uncontrolled diabetes mellitus Status: Acute (3) Anxiety Status: Acute (4) Chest pain in adult Status: Acute (5) Cholecystitis Status: Acute (6) Depression with somatization Status: Acute (7) Diabetes mellitus Status: Acute (8) Muscle weakness Status: Acute (9) Obstructive sleep apnea of adult Status: Acute (10) Panic anxiety syndrome Status: Acute (11) Skin irritation Status: Acute (12) Syncope Status: Acute - Assessment and Plan (Free Text) Plan: Patient examined. Clinical the same. Continue antibiotics penicillin and tazobactam. Continue medications for CAD, DM, HTN, hyperlipidemia medications. Acyclovir for possible varicella-zoster infection. Pneumococcal vaccine.
[2017-08-21] MEDS: Potassium Chloride 20 mEq ER Tab PO SCH (21:56)
[2017-08-21] MEDS: (Lantus) Insulin Glargine, Recombinant SC SCH (21:57)
[2017-08-22] MEDS: Potassium Chloride 20 mEq ER Tab PO SCH ×3 (00:03→10:30)
[2017-08-22] MEDS: Vancomycin 1 gm/NS 200 ml 1 GM/200 ML BAG IVPB SCH ×3 (01:36→13:42)
[2017-08-22] MEDS: Acyclovir 500 MG in Dextrose 5% In Water 100 ML IV SCH ×3 (05:26→19:45)
[2017-08-22] MEDS: Piperacill/Tazo 3.375gm in Dex 3.375 GM/50 ML BAG IVPB SCH ×4 (05:27→23:53)
[2017-08-22 07:54] LABS: BASO % 0.4 % (0.0-2.0); EOS # 0.2 K/uL (0.0-0.7); EOS % 2.6 % (0.0-4.0); HEMATOCRIT 32.3 % (34.0-47.0); LYMPH # 1.7 K/uL (1.0-4.3); LYMPH % 22.6 % (20.0-40.0); MEAN CELL VOLUME 77.6 fL (81.0-99.0); MEAN CORPUSCULAR HEMOGLOBIN 26.1 pg (27.0-31.0); MEAN CORPUSCULAR HGB CONC 33.6 g/dL (33.0-37.0); MEAN PLATELET VOLUME 7.6 fL (7.2-11.7); MONO # 0.4 K/uL (0.0-0.8); MONO % 5.2 % (0.0-10.0); NRBC % 0.1 % (0.0-2.0); RED CELL DISTRIBUTION WIDTH 14.3 % (11.5-14.5); WHITE BLOOD COUNT 7.5 K/uL (4.8-10.8)
[2017-08-22 08:06] LABS: CHLORIDE 103 mmol/L (98-107)
[2017-08-22 08:07] LABS: POTASSIUM 3.4 mmol/L (3.6-5.2); SODIUM 143 mmol/L (132-148)
[2017-08-22 08:09] LABS: BILIRUBIN,TOTAL 0.3 mg/dL (0.2-1.3); CARBON DIOXIDE 28 mmol/L (22-30); CHOLESTEROL 119 mg/dL (0-199); GFR AFRICAN-AMERICAN > 60
[2017-08-22 08:10] LABS: ALKALINE PHOSPHATASE 69 U/L (38-126); ALT/SGPT 20 U/L (9-52); AST/SGOT 17 U/L (14-36); BLOOD UREA NITROGEN 7 mg/dL (7-17); CALCIUM 8.6 mg/dl (8.6-10.4); GLUCOSE,RANDOM 219 mg/dL (65-105); PHOSPHOROUS 1.5 mg/dL (2.5-4.5); TOTAL PROTEIN 6.6 g/dL (6.3-8.3)
[2017-08-22 08:11] LABS: MAGNESIUM 1.7 mg/dL (1.6-2.3)
--- NOTE | 2017-08-22 08:26 | CP.PCM.PN ---
<Ankit Bowers - Last Filed: 08/22/17 20:05> Subjective - Date & Time of Evaluation Date of Evaluation: 08/22/17 Time of Evaluation: 08:18 - Subjective Subjective: PGY-[address] Lau's service: Pt seen and examined at bedside. Nursing reports no acute events overnight. Patient states the pain on her left scalp/orbit is worse today. She states she feels her eyelid is more swollen today, but is able "to see fine out of it, when she opens it." She denies vision acuity changes, fever, chills, nausea, abdominal pain, N/V/D/C. Objective - Vital Signs/Intake and Output Vital Signs (last 24 hours): Temp Pulse Resp BP Pulse Ox 99.7 F H 78 20 132/65 98 08/21/17 23:41 08/21/17 23:41 08/21/17 23:41 08/21/17 23:41 08/21/17 23:41 - Medications Medications: Current Medications Alprazolam (Xanax) 0.5 mg PO HS PRN PRN Reason: Anxiety Last Admin: 08/21/17 22:38 Dose: 0.5 mg Aspirin (Aspirin Chewable) 81 mg PO DAILY [facility] Last Admin: 08/21/17 10:01 Dose: 81 mg Clopidogrel Bisulfate (Plavix) 75 mg PO DAILY [facility] Last Admin: 08/21/17 10:01 Dose: 75 mg Enoxaparin Sodium (Lovenox) 40 mg SC DAILY [facility] Last Admin: 08/21/17 10:01 Dose: 40 mg Famotidine (Pepcid) 20 mg PO BID [facility] Last Admin: 08/21/17 17:41 Dose: 20 mg Fenofibrate (Tricor) 145 mg PO DAILY [facility] Last Admin: 08/21/17 10:01 Dose: 145 mg Glimepiride (Amaryl) 4 mg PO BID [facility] Last Admin: 08/21/17 17:41 Dose: 4 mg Hydromorphone HCl (Dilaudid) 0.5 mg IVP Q6H PRN PRN Reason: pain Last Admin: 08/21/17 23:55 Dose: 0.5 mg Sodium Chloride (Sodium Chloride 0.9%) 1,000 mls @ 200 mls/hr IV .Q5H [facility] Last Admin: 08/21/17 23:53 Dose: 200 mls/hr Piperacillin Sod/Tazobactam Sod (Zosyn 3.375 Gm Iv Premix) 3.375 gm in 50 mls @ 100 mls/hr IVPB Q6 [facility] Last Admin: 08/22/17 05:27 Dose: 100 mls/hr Acyclovir 500 mg/ Dextrose 100 mls @ 100 mls/hr IV Q8H [facility] Last Admin: 08/22/17 05:26 Dose: 100 mls/hr Vancomycin/Sodium Chloride (Vancocin) 1 gm in 200 mls @ 133.333 mls/hr IVPB Q12H [facility] Last Admin: 08/22/17 01:36 Dose: 133.333 mls/hr Ibuprofen (Motrin Tab) 400 mg PO TID PRN PRN Reason: Pain, moderate (4-7) Last Admin: 08/22/17 03:30 Dose: 400 mg Insulin Aspart (Novolog Mix 70/30 (70/30 Units/Ml)) 25 units SC BIDAC [facility] Insulin Aspart (Novolog) 0 unit SC ACHS [facility] PRN Reason: Protocol Last Admin: 08/21/17 22:00 Dose: Not Given Insulin Glargine (Lantus) 15 unit SC [facility] Last Admin: 08/21/17 21:57 Dose: 15 unit Methadone HCl (Methadone) 10 mg PO BID PRN PRN Reason: Pain, severe (8-10) Last Admin: 08/21/17 00:05 Dose: 10 mg Nifedipine (Procardia Xl) 90 mg PO DAILY [facility] Last Admin: 08/21/17 10:01 Dose: 90 mg Pneumococcal Polyvalent Vaccine (Pneumovax 23 Vaccine) 0.5 ml IM .ONCE ONE Stop: 08/22/17 10:01 Rosuvastatin Calcium (Crestor) 10 mg PO [facility] Last Admin: 08/21/17 21:56 Dose: 10 mg Sertraline HCl (Zoloft) 100 mg PO DAILY [facility] Last Admin: 08/21/17 10:01 Dose: 100 mg Sitagliptin Phosphate (Januvia) 100 mg PO DAILY [facility] Last Admin: 08/21/17 10:12 Dose: 100 mg Tramadol HCl (Ultram) 50 mg PO TID PRN PRN Reason: Pain, moderate (4-7) Last Admin: 08/21/17 22:36 Dose: 50 mg - Labs Labs: 08/22/17 07:45 08/22/17 07:45 - Additional Findings Additional findings: - Constitutional Appears: Non-toxic, No Acute Distress - Head Exam Head Exam: ATRAUMATIC. absent: NORMAL INSPECTION Additional comments: Left parietal/temporal area - edema - no crepitus, no abscess - Eye Exam Eye Exam: EOMI. absent: Scleral icterus Pupil Exam: PERRL - pertinent CN II, IV, intact - visual acuity intact when pt opens eye - significant left eyelid/periorbital swelling (worse from yesterday) - ENT Exam ENT Exam: Mucous Membranes Moist - Neck Exam Neck Exam: Full ROM - Respiratory Exam Respiratory Exam: Clear to Ausculation Bilateral, NORMAL BREATHING PATTERN. absent: Rales, Rhonchi, Wheezes - Cardiovascular Exam Cardiovascular Exam: REGULAR RHYTHM, +S1, +S2 - GI/Abdominal Exam GI & Abdominal Exam: Soft, Normal Bowel Sounds. absent: Tenderness - Extremities Exam Extremities Exam: Normal Inspection. absent: Pedal Edema - Back Exam Back Exam: absent: CVA tenderness (L), CVA tenderness (R) - Neurological Exam Neurological Exam: Alert, Awake, Oriented x3 - Psychiatric Exam Psychiatric exam: Normal Affect, Normal Mood - Skin Skin Exam: Normal Color, Warm Additional comments: except noted in facial area Assessment and Plan - Assessment and Plan (Free Text) Plan: Valeria-orbital cellulitis Admit to med-surg CT Neck soft tissue (08/21/17): Minimal left lateral periorbital cellulitis with prominent left scalp convexity cellultiis primairily involving the frontal parietal distribution without obvious abscess. Cellulitus is preseptal without post-septal involvement (see full report). Dr. Montalvo, ID educational consultant, hep appreciated - Continue Acyclovir 500mg IV Q8H (first dose 08/21/17) - Continue Vancomycin 1gm IV Q12H (first dose 08/21/17) - Continue Zosyn 3.375 gm IV Q6H (first dose: 08/21/17) - Cefazolin given once in ED - Droplet/Contact Isolation per ID due to possibility of herpes zoster - f/u Herpes serology - recommend CT Orbits, and opthalmology evaluation Ophthalmology evaluation: Dr. Lenz, help appreciated - Spoke with Dr. Lenz who advised to treat for both zoster/cellulitis - Believes because pt showing no difficulty seeing, no urgent need for evaluation by him - Open to seeing pt in office as outpatient, or reconsult if needs arises Motrin 400mg PO TID for mild pain Methadone 10mg PO BID for moderate pain Dilaudid 1mg IVP q4H PRN for severe pain blood culture (08/20/17): no growth x 24 hours x 2 CAD Plavix 75mg PO Daily Crestor 10mg PO HS ASA 81mg PO Daily - Lipid Panel: WNL Type two diabetes mellitus Poorly controlled -A1C: 11.2 Accuchecks Amaryl 4mg PO BID Januvia 100mg PO Daily Novolog 70/30 25 units SC BID Lantus 15 units SC HS HISS - aspart Hypokalemia 3.4 on AM labs - repleted Hx of Hypertriglyceridemia Tricor 145mg PO Daily - Lipid panel: WNL Depression Zoloft 100mg PO Daily Prophylaxis Lovenox 40mg SC Daily Pepcid 20mg PO BID [facility]CD[facility] Ankit Bowers PGY-2 Discussed with attending. All medical managment per Dr. Lester Lau. <Sinai Lau S - Last Filed: 10/04/17 18:37> Objective - Vital Signs/Intake and Output Vital Signs (last 24 hours): Temp Pulse Resp BP Pulse Ox 99.2 F 60 20 149/75 95 08/29/17 08:17 08/29/17 08:17 08/29/17 08:17 08/29/17 08:17 08/29/17 08:17 - Labs Labs: 08/29/17 11:46 08/29/17 11:46 Assessment and Plan (1) Cellulitis of scalp Status: Acute (2) Uncontrolled diabetes mellitus Status: Acute (3) Anxiety Status: Acute (4) Chest pain in adult Status: Acute (5) Cholecystitis Status: Acute (6) Depression with somatization Status: Acute (7) Diabetes mellitus Status: Acute (8) Muscle weakness Status: Acute (9) Obstructive sleep apnea of adult Status: Acute (10) Panic anxiety syndrome Status: Acute (11) Skin irritation Status: Acute (12) Syncope Status: Acute Attending/Attestation - Attestation I have personally seen and examined this patient.: Yes I have fully participated in the care of the patient.: Yes I have reviewed all pertinent clinical information, including history, physical exam and plan: Yes Notes (Text): Patient examined. No overnight events. Patient says her eyelid is more swollen. Continue acyclovir, piperacillin tazobactam, vancomycin. Continue aspirin. Continue medications for CAD, DM, hypokalemia, hypertriglyceridemia, depression.
[2017-08-22] MEDS: HYDROmorphone 0.5 mg/0.5 ml ISec IVP PRN ×4 (08:45→23:54)
[2017-08-22] MEDS: (Novolog Mix 70/30) Insulin Aspart/Insulin Aspar 100 units/ml SC SCH ×2 (08:49→17:40)
[2017-08-22] MEDS: (Novolog) Insulin Aspart, Recombinant 100 u/ml 10 ml vial SC SCH ×4 (08:50→21:50)
[2017-08-22] MEDS: Sodium Chloride 0.9% 1,000 ML IV SCH (09:00)
[2017-08-22] MEDS: Enoxaparin 40 mg Syringe SC SCH (09:01)
[2017-08-22] MEDS ORDERED: Pneumococcal 23-Valent Vaccine IM ONE (10:00)
[2017-08-22] MEDS: NIFEdipine 90 mg ER Tab PO SCH (10:00)
[2017-08-22] MEDS ORDERED: Potassium Chloride 20 mEq ER Tab PO ONE (11:00)
--- NOTE | 2017-08-22 12:49 | CP.PCM.PN ---
Subjective - Date & Time of Evaluation Date of Evaluation: 08/22/17 Time of Evaluation: 08:00 - Subjective Subjective: c/o painful swelling left eye- slightly worse iv rx in progress Objective - Vital Signs/Intake and Output Vital Signs (last 24 hours): Temp Pulse Resp BP Pulse Ox 98.6 F 66 20 123/77 98 08/22/17 08:25 08/22/17 08:25 08/22/17 08:25 08/22/17 08:25 08/22/17 08:25 - Medications Medications: Current Medications Alprazolam (Xanax) 0.5 mg PO HS PRN PRN Reason: Anxiety Last Admin: 08/21/17 22:38 Dose: 0.5 mg Aspirin (Aspirin Chewable) 81 mg PO DAILY [facility] Last Admin: 08/22/17 09:02 Dose: 81 mg Clopidogrel Bisulfate (Plavix) 75 mg PO DAILY [facility] Last Admin: 08/22/17 09:02 Dose: 75 mg Enoxaparin Sodium (Lovenox) 40 mg SC DAILY [facility] Last Admin: 08/22/17 09:01 Dose: 40 mg Famotidine (Pepcid) 20 mg PO BID [facility] Last Admin: 08/22/17 09:02 Dose: 20 mg Fenofibrate (Tricor) 145 mg PO DAILY [facility] Last Admin: 08/22/17 10:00 Dose: 145 mg Glimepiride (Amaryl) 4 mg PO BID [facility] Last Admin: 08/22/17 09:02 Dose: 4 mg Hydromorphone HCl (Dilaudid) 0.5 mg IVP Q6H PRN PRN Reason: pain Last Admin: 08/22/17 08:45 Dose: 0.5 mg Piperacillin Sod/Tazobactam Sod (Zosyn 3.375 Gm Iv Premix) 3.375 gm in 50 mls @ 100 mls/hr IVPB Q6 [facility] Last Admin: 08/22/17 12:01 Dose: 100 mls/hr Acyclovir 500 mg/ Dextrose 100 mls @ 100 mls/hr IV Q8H [facility] Last Admin: 08/22/17 11:44 Dose: 100 mls/hr Vancomycin/Sodium Chloride (Vancocin) 1 gm in 200 mls @ 133.333 mls/hr IVPB Q12H [facility] Last Admin: 08/22/17 01:36 Dose: 133.333 mls/hr Ibuprofen (Motrin Tab) 400 mg PO TID PRN PRN Reason: Pain, moderate (4-7) Last Admin: 08/22/17 03:30 Dose: 400 mg Insulin Aspart (Novolog Mix 70/30 (70/30 Units/Ml)) [facility] Last Admin: 08/22/17 08:49 Dose: 25 units Insulin Aspart (Novolog) 0 unit SC [facility] PRN Reason: Protocol Last Admin: 08/22/17 08:50 Dose: 4 unit Insulin Glargine (Lantus) 15 unit SC [facility] Last Admin: 08/21/17 21:57 Dose: 15 unit Methadone HCl (Methadone) 10 mg PO BID PRN PRN Reason: Pain, severe (8-10) Last Admin: 08/21/17 00:05 Dose: 10 mg Nifedipine (Procardia Xl) 90 mg PO DAILY [facility] Last Admin: 08/22/17 10:00 Dose: 90 mg Rosuvastatin Calcium (Crestor) 10 mg PO [facility] Last Admin: 08/21/17 21:56 Dose: 10 mg Sertraline HCl (Zoloft) 100 mg PO DAILY [facility] Last Admin: 08/22/17 09:02 Dose: 100 mg Sitagliptin Phosphate (Januvia) 100 mg PO DAILY [facility] Last Admin: 08/22/17 09:02 Dose: 100 mg Tramadol HCl (Ultram) 50 mg PO TID PRN PRN Reason: Pain, moderate (4-7) Last Admin: 08/22/17 11:59 Dose: 50 mg - Labs Labs: 08/22/17 07:45 08/22/17 07:45 - Constitutional Appears: Non-toxic, Chronically Ill - Head Exam Head Exam: NORMOCEPHALIC - Eye Exam Eye Exam: PERRL - ENT Exam ENT Exam: Normal External Ear Exam - Neck Exam Neck Exam: absent: Lymphadenopathy - Respiratory Exam Respiratory Exam: Decreased Breath Sounds - Cardiovascular Exam Cardiovascular Exam: REGULAR RHYTHM - GI/Abdominal Exam GI & Abdominal Exam: Distended, Soft - Rectal Exam Rectal Exam: Deferred - Exam Exam: NORMAL INSPECTION Assessment and Plan (1) Cellulitis of scalp Status: Acute (2) Uncontrolled diabetes mellitus Status: Acute - Assessment and Plan (Free Text) Assessment: likely Zoster with cellulitis left preorbital consider eye consult and CT
[2017-08-22] MEDS ORDERED: HYDROmorphone 0.5 mg/0.5 ml ISec IVP PRN (13:30)
--- NOTE | 2017-08-22 20:05 | CP.PCM.PN ---
Subjective - Date & Time of Evaluation Date of Evaluation: 08/22/17 Time of Evaluation: 08:00 - Subjective Subjective: clinically same Objective - Vital Signs/Intake and Output Vital Signs (last 24 hours): Temp Pulse Resp BP Pulse Ox 97.9 F 64 20 146/78 99 08/22/17 15:09 08/22/17 15:09 08/22/17 15:09 08/22/17 15:09 08/22/17 15:09 Intake and Output: 08/22/17 08/23/17 18:59 06:59 Intake Total 2350 Balance 2350 - Medications Medications: Current Medications Alprazolam (Xanax) 0.5 mg PO HS PRN PRN Reason: Anxiety Last Admin: 08/21/17 22:38 Dose: 0.5 mg Aspirin (Aspirin Chewable) 81 mg PO DAILY [facility] Last Admin: 08/22/17 09:02 Dose: 81 mg Clopidogrel Bisulfate (Plavix) 75 mg PO DAILY [facility] Last Admin: 08/22/17 09:02 Dose: 75 mg Enoxaparin Sodium (Lovenox) 40 mg SC DAILY [facility] Last Admin: 08/22/17 09:01 Dose: 40 mg Famotidine (Pepcid) 20 mg PO BID [facility] Last Admin: 08/22/17 17:44 Dose: 20 mg Fenofibrate (Tricor) 145 mg PO DAILY [facility] Last Admin: 08/22/17 10:00 Dose: 145 mg Glimepiride (Amaryl) 4 mg PO BID [facility] Last Admin: 08/22/17 17:40 Dose: 4 mg Hydromorphone HCl (Dilaudid) 1 mg IVP Q4H PRN PRN Reason: Pain, severe (8-10) Last Admin: 08/22/17 19:46 Dose: 1 mg Piperacillin Sod/Tazobactam Sod (Zosyn 3.375 Gm Iv Premix) 3.375 gm in 50 mls @ 100 mls/hr IVPB Q6 [facility] Last Admin: 08/22/17 17:39 Dose: 100 mls/hr Acyclovir 500 mg/ Dextrose 100 mls @ 100 mls/hr IV Q8H [facility] Last Admin: 08/22/17 19:45 Dose: 100 mls/hr Vancomycin/Sodium Chloride (Vancocin) 1 gm in 200 mls @ 133.333 mls/hr IVPB Q12H [facility] Last Admin: 08/22/17 13:42 Dose: Not Given Ibuprofen (Motrin Tab) 400 mg PO TID PRN PRN Reason: Pain, Mild (1-3) Last Admin: 08/22/17 17:45 Dose: 400 mg Insulin Aspart (Novolog Mix 70/30 (70/30 Units/Ml)) 25 units SC BIDAC [facility] Last Admin: 08/22/17 17:40 Dose: 25 units Insulin Aspart (Novolog) 0 unit SC ACHS [facility] PRN Reason: Protocol Last Admin: 08/22/17 17:41 Dose: 2 unit Insulin Glargine (Lantus) 15 unit SC HS [facility] Last Admin: 08/21/17 21:57 Dose: 15 unit Methadone HCl (Methadone) 10 mg PO BID PRN PRN Reason: Pain, moderate (4-7) Nifedipine (Procardia Xl) 90 mg PO DAILY [facility] Last Admin: 08/22/17 10:00 Dose: 90 mg Rosuvastatin Calcium (Crestor) 10 mg PO HS [facility] Last Admin: 08/21/17 21:56 Dose: 10 mg Sertraline HCl (Zoloft) 100 mg PO DAILY [facility] Last Admin: 08/22/17 09:02 Dose: 100 mg Sitagliptin Phosphate (Januvia) 100 mg PO DAILY [facility] Last Admin: 08/22/17 09:02 Dose: 100 mg - Labs Labs: 08/22/17 07:45 08/22/17 07:45 - Constitutional Appears: Well - Head Exam Head Exam: ATRAUMATIC, NORMAL INSPECTION, NORMOCEPHALIC - Eye Exam Eye Exam: EOMI, Normal appearance, PERRL Pupil Exam: NORMAL ACCOMODATION, PERRL - ENT Exam ENT Exam: Mucous Membranes Moist, Normal Exam - Neck Exam Neck Exam: Full ROM, Normal Inspection. absent: Lymphadenopathy - Respiratory Exam Respiratory Exam: Decreased Breath Sounds - Cardiovascular Exam Cardiovascular Exam: REGULAR RHYTHM, +S1, +S2 - GI/Abdominal Exam GI & Abdominal Exam: Soft, Diminished Bowel Sounds - Rectal Exam Rectal Exam: Deferred - Back Exam Back Exam: NORMAL INSPECTION - Neurological Exam Neurological Exam: Alert, Awake, CN II-XII Intact, Normal Gait, Oriented x3 - Psychiatric Exam Psychiatric exam: Normal Affect, Normal Mood - Skin Skin Exam: Dry, Intact, Normal Color, Warm Assessment and Plan (1) Cellulitis of scalp Status: Acute (2) Uncontrolled diabetes mellitus Status: Acute (3) Anxiety Status: Acute (4) Chest pain in adult Status: Acute (5) Cholecystitis Status: Acute (6) Depression with somatization Status: Acute (7) Diabetes mellitus Status: Acute (8) Muscle weakness Status: Acute (9) Obstructive sleep apnea of adult Status: Acute (10) Panic anxiety syndrome Status: Acute (11) Skin irritation Status: Acute (12) Syncope Status: Acute - Assessment and Plan (Free Text) Plan: EKG normal. CT scan neck soft tissue suggestive of minimal left lateral periorbital cellulitis with scalp cellulitis involving frontal and parietal region. Laboratory shows RBS of 40. His lactate at 3.6. WBC count normal. Blood culture negative. ID consult done. To rule out varicella-zoster. Add acyclovir. Continue antibiotic piperacillin and tazobactam. Continue insulin. Continue antihypertensive medications. Continue aspirin. Continue supportive care.
--- NOTE | 2017-08-22 21:33 | CT ---
EXAM: CT Orbits Without Intravenous Contrast EXAM DATE/TIME: Exam ordered 08/22/2017 4:01 PM CLINICAL HISTORY: 67 years old, female; Signs and symptoms; Mass, lump, or swelling; Other: Left eye swelling; Additional info: Periorbital cellulitis TECHNIQUE: Axial computed tomography images of the orbits without intravenous contrast. All CT scans at this facility use one or more dose reduction techniques, viz.: automated exposure control; ma/kV adjustment per patient size (including targeted exams where dose is matched to indication; i.e. head); or iterative reconstruction technique. Sagittal reformatted images were created and reviewed. COMPARISON: CT - NECK SOFT TISSUE W/CONTRAST 08/20/2017 7:48:26 PM FINDINGS: Orbits: Mild thickening is noted of the preseptal soft tissues on the left. There no inflammatory changes noted within the intraconal fat of the left orbit. Sinuses: A small air-fluid levels noted in the left sphenoid sinus. Bones/joints: No acute fracture. Soft tissues: There is mild stranding noted within the subcutaneous fat external to the platysma muscle. The inflammatory changes are noted extending over the left zygoma and left parotid. There is mild asymmetric enlargement of the left sternocleidomastoid muscle with associated inflammatory changes noted. Again noted is a soft tissue swelling of the left parietal scalp Lymph nodes: Scattered subcentimeter anterior and posterior cervical lymph nodes are present. Subcentimeter perisubmandibular lymph nodes are present. IMPRESSION: 1. Persistent cellulitis noted involving the left side of the face extending over the left temporoparietal scalp. Minimal involvement of the preseptal soft tissues. No abnormalities noted within the left orbit 2. Asymmetric enlargement of the left sternocleidomastoid muscle and left platysma with associated inflammatory change indicates myositis. This is slightly more conspicuous than on the previous examination 3. A small air-fluid level seen in left sphenoid sinus.
[2017-08-22] MEDS: (Lantus) Insulin Glargine, Recombinant SC SCH (21:46)
[2017-08-23] MEDS: Vancomycin 1 gm/NS 200 ml 1 GM/200 ML BAG IVPB SCH ×2 (02:35→13:50)
[2017-08-23] MEDS: Acyclovir 500 MG in Dextrose 5% In Water 100 ML IV SCH ×3 (04:51→20:30)
[2017-08-23] MEDS: HYDROmorphone 0.5 mg/0.5 ml ISec IVP PRN ×5 (04:52→22:36)
[2017-08-23] MEDS: Piperacill/Tazo 3.375gm in Dex 3.375 GM/50 ML BAG IVPB SCH ×4 (05:00→23:55)
[2017-08-23 07:27] LABS: BASO % 0.5 % (0.0-2.0); EOS # 0.3 K/uL (0.0-0.7); EOS % 4.3 % (0.0-4.0); HEMATOCRIT 31.3 % (34.0-47.0); LYMPH # 1.7 K/uL (1.0-4.3); LYMPH % 28.1 % (20.0-40.0); MEAN CELL VOLUME 78.5 fL (81.0-99.0); MEAN CORPUSCULAR HEMOGLOBIN 26.3 pg (27.0-31.0); MEAN CORPUSCULAR HGB CONC 33.4 g/dL (33.0-37.0); MEAN PLATELET VOLUME 7.5 fL (7.2-11.7); MONO # 0.4 K/uL (0.0-0.8); MONO % 6.5 % (0.0-10.0); NRBC % 0.1 % (0.0-2.0); RED CELL DISTRIBUTION WIDTH 14.6 % (11.5-14.5); WHITE BLOOD COUNT 6.1 K/uL (4.8-10.8)
[2017-08-23 08:01] LABS: CHLORIDE 99 mmol/L (98-107)
[2017-08-23 08:02] LABS: POTASSIUM 4.1 mmol/L (3.6-5.2); SODIUM 141 mmol/L (132-148)
[2017-08-23 08:04] LABS: ALB/GLOB RATIO 1.1 (1.0-2.1); ALKALINE PHOSPHATASE 60 U/L (38-126); ALT/SGPT 24 U/L (9-52); AST/SGOT 27 U/L (14-36); BILIRUBIN,TOTAL 0.4 mg/dL (0.2-1.3); BLOOD UREA NITROGEN 12 mg/dL (7-17); CARBON DIOXIDE 27 mmol/L (22-30); GFR AFRICAN-AMERICAN > 60; GLUCOSE,RANDOM 236 mg/dL (65-105); PHOSPHOROUS 2.2 mg/dL (2.5-4.5); TOTAL PROTEIN 6.5 g/dL (6.3-8.3)
[2017-08-23 08:05] LABS: CALCIUM 8.6 mg/dl (8.6-10.4); MAGNESIUM 1.7 mg/dL (1.6-2.3)
[2017-08-23] MEDS: (Novolog) Insulin Aspart, Recombinant 100 u/ml 10 ml vial SC SCH ×5 (08:29→22:00)
[2017-08-23] MEDS: (Novolog Mix 70/30) Insulin Aspart/Insulin Aspar 100 units/ml SC SCH ×2 (08:29→17:32)
[2017-08-23] MEDS: Enoxaparin 40 mg Syringe SC SCH (09:25)
[2017-08-23] MEDS: NIFEdipine 90 mg ER Tab PO SCH (09:26)
--- NOTE | 2017-08-23 13:20 | CARD ---
APPROVED REPORT EKG Measurement Heart [id number] <Conclusion> Normal sinus rhythm Possible Left atrial enlargement Nonspecific T wave abnormality Abnormal ECG
--- NOTE | 2017-08-23 13:46 | CP.PCM.PN ---
Subjective - Date & Time of Evaluation Date of Evaluation: 08/23/17 Time of Evaluation: 09:00 - Subjective Subjective: c/o pain alert responsive NAD Objective - Vital Signs/Intake and Output Vital Signs (last 24 hours): Temp Pulse Resp BP Pulse Ox 98.0 F 58 L 20 150/74 97 08/23/17 07:28 08/23/17 07:28 08/23/17 07:28 08/23/17 07:28 08/23/17 07:28 Intake and Output: 08/23/17 08/23/17 06:59 18:59 Intake Total 300 Balance 300 - Medications Medications: Current Medications Alprazolam (Xanax) 0.5 mg PO HS PRN PRN Reason: Anxiety Last Admin: 08/22/17 21:45 Dose: 0.5 mg Aspirin (Aspirin Chewable) 81 mg PO DAILY [facility] Last Admin: 08/23/17 09:26 Dose: 81 mg Clopidogrel Bisulfate (Plavix) 75 mg PO DAILY [facility] Last Admin: 08/23/17 09:26 Dose: 75 mg Enoxaparin Sodium (Lovenox) 40 mg SC DAILY [facility] Last Admin: 08/23/17 09:25 Dose: 40 mg Famotidine (Pepcid) 20 mg PO BID [facility] Last Admin: 08/23/17 09:29 Dose: 20 mg Fenofibrate (Tricor) 145 mg PO DAILY [facility] Last Admin: 08/23/17 09:26 Dose: 145 mg Gabapentin (Neurontin) 300 mg PO Q8 [facility] Last Admin: 08/23/17 11:58 Dose: 300 mg Glimepiride (Amaryl) 4 mg PO BID [facility] Last Admin: 08/23/17 09:26 Dose: 4 mg Hydromorphone HCl (Dilaudid) 1 mg IVP Q4H PRN PRN Reason: Pain, severe (8-10) Last Admin: 08/23/17 09:00 Dose: 1 mg Piperacillin Sod/Tazobactam Sod (Zosyn 3.375 Gm Iv Premix) 3.375 gm in 50 mls @ 100 mls/hr IVPB Q6 [facility] Last Admin: 08/23/17 11:58 Dose: 100 mls/hr Acyclovir 500 mg/ Dextrose 100 mls @ 100 mls/hr IV Q8H [facility] Last Admin: 08/23/17 11:59 Dose: 100 mls/hr Vancomycin/Sodium Chloride (Vancocin) 1 gm in 200 mls @ 133.333 mls/hr IVPB Q12H [facility] Last Admin: 08/23/17 02:35 Dose: 133.333 mls/hr Ibuprofen (Motrin Tab) 400 mg PO TID PRN PRN Reason: Pain, Mild (1-3) Last Admin: 08/22/17 17:45 Dose: 400 mg Insulin Aspart (Novolog Mix 70/30 (70/30 Units/Ml)) 25 units SC BIDAC [facility] Last Admin: 08/23/17 08:29 Dose: Not Given Insulin Aspart (Novolog) 0 unit SC ACHS [facility] PRN Reason: Protocol Last Admin: 08/23/17 11:56 Dose: Not Given Insulin Glargine (Lantus) 15 unit SC HS [facility] Last Admin: 08/22/17 21:46 Dose: 15 unit Methadone HCl (Methadone) 10 mg PO BID PRN PRN Reason: Pain, moderate (4-7) Nifedipine (Procardia Xl) 90 mg PO DAILY [facility] Last Admin: 08/23/17 09:26 Dose: 90 mg Rosuvastatin Calcium (Crestor) 10 mg PO HS [facility] Last Admin: 08/22/17 21:45 Dose: 10 mg Sertraline HCl (Zoloft) 100 mg PO DAILY [facility] Last Admin: 08/23/17 09:27 Dose: 100 mg Sitagliptin Phosphate (Januvia) 100 mg PO DAILY [facility] Last Admin: 08/23/17 09:26 Dose: 100 mg - Labs Labs: 08/23/17 07:15 08/23/17 07:15 - Constitutional Appears: Non-toxic, Chronically Ill - Head Exam Head Exam: NORMOCEPHALIC - Eye Exam Eye Exam: PERRL - ENT Exam ENT Exam: Mucous Membranes Dry - Neck Exam Neck Exam: absent: Lymphadenopathy - Respiratory Exam Respiratory Exam: Decreased Breath Sounds - Cardiovascular Exam Cardiovascular Exam: REGULAR RHYTHM - GI/Abdominal Exam GI & Abdominal Exam: Distended, Soft - Rectal Exam Rectal Exam: Deferred - Exam Exam: NORMAL INSPECTION - Extremities Exam Extremities Exam: absent: Calf Tenderness, Pedal Edema - Back Exam Back Exam: absent: CVA tenderness (L), CVA tenderness (R) - Neurological Exam Neurological Exam: Alert, Awake, Oriented x3 Assessment and Plan (1) Cellulitis of scalp Status: Acute (2) Uncontrolled diabetes mellitus Status: Acute - Assessment and Plan (Free Text) Assessment: needs pain management , ENT eval cont IV rx
--- NOTE | 2017-08-23 15:59 | CP.PCM.PN ---
<Jayesh Navarro - Last Filed: 08/23/17 15:56> Subjective - Date & Time of Evaluation Date of Evaluation: 08/23/17 Time of Evaluation: 09:00 - Subjective Subjective: PGY3 on medicine Dr. Lau service: Pt seen and examined at bedside this morning. Pt reports improvement of her facial swelling but pain is very severe still. Pt said medicine only helps a little bit of pain and light makes the headache worse. Objective - Vital Signs/Intake and Output Vital Signs (last 24 hours): Temp Pulse Resp BP Pulse Ox 98.0 F 58 L 20 150/74 97 08/23/17 07:28 08/23/17 07:28 08/23/17 07:28 08/23/17 07:28 08/23/17 07:28 Intake and Output: 08/23/17 08/23/17 06:59 18:59 Intake Total 300 Balance 300 - Medications Medications: Current Medications Alprazolam (Xanax) 0.5 mg PO HS PRN PRN Reason: Anxiety Last Admin: 08/22/17 21:45 Dose: 0.5 mg Aspirin (Aspirin Chewable) 81 mg PO DAILY [facility] Last Admin: 08/23/17 09:26 Dose: 81 mg Clopidogrel Bisulfate (Plavix) 75 mg PO DAILY [facility] Last Admin: 08/23/17 09:26 Dose: 75 mg Enoxaparin Sodium (Lovenox) 40 mg SC DAILY [facility] Last Admin: 08/23/17 09:25 Dose: 40 mg Famotidine (Pepcid) 20 mg PO BID [facility] Last Admin: 08/23/17 09:29 Dose: 20 mg Fenofibrate (Tricor) 145 mg PO DAILY [facility] Last Admin: 08/23/17 09:26 Dose: 145 mg Gabapentin (Neurontin) 300 mg PO Q8 [facility] Last Admin: 08/23/17 13:54 Dose: 300 mg Glimepiride (Amaryl) 4 mg PO BID [facility] Last Admin: 08/23/17 09:26 Dose: 4 mg Hydromorphone HCl (Dilaudid) 2 mg IVP Q4H PRN PRN Reason: Pain, severe (8-10) Piperacillin Sod/Tazobactam Sod (Zosyn 3.375 Gm Iv Premix) 3.375 gm in 50 mls @ 100 mls/hr IVPB Q6 [facility] Last Admin: 08/23/17 11:58 Dose: 100 mls/hr Acyclovir 500 mg/ Dextrose 100 mls @ 100 mls/hr IV Q8H [facility] Last Admin: 08/23/17 11:59 Dose: 100 mls/hr Vancomycin/Sodium Chloride (Vancocin) 1 gm in 200 mls @ 133.333 mls/hr IVPB Q12H [facility] Last Admin: 08/23/17 13:50 Dose: 133.333 mls/hr Ibuprofen (Motrin Tab) 400 mg PO TID PRN PRN Reason: Pain, Mild (1-3) Last Admin: 08/22/17 17:45 Dose: 400 mg Insulin Aspart (Novolog Mix 70/30 (70/30 Units/Ml)) 25 units SC BIDAC [facility] Last Admin: 08/23/17 08:29 Dose: Not Given Insulin Aspart (Novolog) 0 unit SC ACHS [facility] PRN Reason: Protocol Last Admin: 08/23/17 11:56 Dose: Not Given Insulin Glargine (Lantus) 15 unit SC HS [facility] Last Admin: 08/22/17 21:46 Dose: 15 unit Methadone HCl (Methadone) 10 mg PO BID PRN PRN Reason: Pain, moderate (4-7) Nifedipine (Procardia Xl) 90 mg PO DAILY [facility] Last Admin: 08/23/17 09:26 Dose: 90 mg Rosuvastatin Calcium (Crestor) 10 mg PO [facility] Last Admin: 08/22/17 21:45 Dose: 10 mg Sertraline HCl (Zoloft) 100 mg PO DAILY [facility] Last Admin: 08/23/17 09:27 Dose: 100 mg Sitagliptin Phosphate (Januvia) 100 mg PO DAILY [facility] Last Admin: 08/23/17 09:26 Dose: 100 mg - Labs Labs: 08/23/17 07:15 08/23/17 07:15 - Constitutional Appears: Non-toxic, No Acute Distress, Chronically Ill - Head Exam Head Exam: NORMOCEPHALIC - Eye Exam Eye Exam: EOMI Pupil Exam: NORMAL ACCOMODATION Additional comments: left parietal edema improved - ENT Exam ENT Exam: Mucous Membranes Moist - Respiratory Exam Respiratory Exam: Clear to Ausculation Bilateral, NORMAL BREATHING PATTERN. absent: Rales, Rhonchi - Cardiovascular Exam Cardiovascular Exam: REGULAR RHYTHM, +S1, +S2. absent: Gallop, Rubs - GI/Abdominal Exam GI & Abdominal Exam: Soft, Normal Bowel Sounds - Neurological Exam Neurological Exam: Alert, Awake, Oriented x3 - Psychiatric Exam Psychiatric exam: Normal Mood - Skin Skin Exam: Intact Assessment and Plan - Assessment and Plan (Free Text) Assessment: Valeria-orbital cellulitis Admit to med-surg, likely secondary to Shingles CT Neck soft tissue (08/21/17): Minimal left lateral periorbital cellulitis with prominent left scalp convexity cellultiis primairily involving the frontal parietal distribution without obvious abscess. Cellulitus is preseptal without post-septal involvement (see full report). Dr. Montalvo, ID quality assurance consultant, hep appreciated - Continue Acyclovir 500mg IV Q8H (first dose 08/21/17) - Continue Vancomycin 1gm IV Q12H (first dose 08/21/17) - Continue Zosyn 3.375 gm IV Q6H (first dose: 08/21/17) - Cefazolin given once in ED - Droplet/Contact Isolation per ID due to possibility of herpes zoster - f/u Herpes serology - CT orbit done showed left temporoparietal scalp cellulitis without involving left orbit. Worsening myositis in left sternocleidomastoid and left platysma muscles. Ophthalmology evaluation: Dr. Lenz, help appreciated - Spoke with Dr. Lenz who advised to treat for both zoster/cellulitis - Believes because pt showing no difficulty seeing, no urgent need for evaluation by him - Open to seeing pt in office as outpatient, or reconsult if needs arises Motrin 400mg PO TID for mild pain Methadone 10mg PO BID for moderate pain Dilaudid 2mg IVP q4H PRN for severe pain blood culture (08/20/17): no growth x 48 hours x 2 CAD Plavix 75mg PO Daily Crestor 10mg PO HS ASA 81mg PO Daily - Lipid Panel: WNL Type two diabetes mellitus Poorly controlled -A1C: 11.2 Accuchecks Amaryl 4mg PO BID Januvia 100mg PO Daily Novolog 70/30 25 units SC BID Lantus 15 units SC HS HISS - aspart Hypokalemia Resolved Hx of Hypertriglyceridemia Tricor 145mg PO Daily - Lipid panel: WNL Depression Zoloft 100mg PO Daily Prophylaxis Lovenox 40mg SC Daily Pepcid 20mg PO BID [facility] Discussed with attending. All medical managment per Dr. Lester Lau. <[facility] Lau S - Last Filed: 10/05/17 11:12> Objective - Vital Signs/Intake and Output Vital Signs (last 24 hours): Temp Pulse Resp BP Pulse Ox 99.2 F 60 20 149/75 95 08/29/17 08:17 08/29/17 08:17 08/29/17 08:17 08/29/17 08:17 08/29/17 08:17 - Labs Labs: 08/29/17 11:46 08/29/17 11:46 Assessment and Plan (1) Cellulitis of scalp Status: Acute (2) Uncontrolled diabetes mellitus Status: Acute (3) Anxiety Status: Acute (4) Chest pain in adult Status: Acute (5) Cholecystitis Status: Acute (6) Depression with somatization Status: Acute (7) Diabetes mellitus Status: Acute (8) Muscle weakness Status: Acute (9) Obstructive sleep apnea of adult Status: Acute (10) Panic anxiety syndrome Status: Acute (11) Skin irritation Status: Acute (12) Syncope Status: Acute Attending/Attestation - Attestation I have personally seen and examined this patient.: Yes I have fully participated in the care of the patient.: Yes I have reviewed all pertinent clinical information, including history, physical exam and plan: Yes Notes (Text): Patient examined. Complaint of pain. Continue acyclovir. Continue piperacillin tazobactam. Continue insulin. Continue other antidiabetic medications. Continue antihypertensive medications. Continue aspirin. Continue supportive care.
--- NOTE | 2017-08-23 18:52 | CP.PCM.PN ---
Subjective - Date & Time of Evaluation Date of Evaluation: 08/23/17 Time of Evaluation: 07:40 - Subjective Subjective: clinically same Objective - Vital Signs/Intake and Output Vital Signs (last 24 hours): Temp Pulse Resp BP Pulse Ox 98.0 F 58 L 20 150/74 97 08/23/17 07:28 08/23/17 07:28 08/23/17 07:28 08/23/17 07:28 08/23/17 07:28 Intake and Output: 08/23/17 08/23/17 06:59 18:59 Intake Total 300 Balance 300 - Medications Medications: Current Medications Alprazolam (Xanax) 0.5 mg PO HS PRN PRN Reason: Anxiety Last Admin: 08/22/17 21:45 Dose: 0.5 mg Aspirin (Aspirin Chewable) 81 mg PO DAILY [facility] Last Admin: 08/23/17 09:26 Dose: 81 mg Clopidogrel Bisulfate (Plavix) 75 mg PO DAILY [facility] Last Admin: 08/23/17 09:26 Dose: 75 mg Enoxaparin Sodium (Lovenox) 40 mg SC DAILY [facility] Last Admin: 08/23/17 09:25 Dose: 40 mg Famotidine (Pepcid) 20 mg PO BID [facility] Last Admin: 08/23/17 17:32 Dose: 20 mg Fenofibrate (Tricor) 145 mg PO DAILY [facility] Last Admin: 08/23/17 09:26 Dose: 145 mg Gabapentin (Neurontin) 300 mg PO Q8 [facility] Last Admin: 08/23/17 13:54 Dose: 300 mg Glimepiride (Amaryl) 4 mg PO BID [facility] Last Admin: 08/23/17 17:31 Dose: 4 mg Hydromorphone HCl (Dilaudid) 2 mg IVP Q4H PRN PRN Reason: Pain, severe (8-10) Last Admin: 08/23/17 17:57 Dose: 2 mg Piperacillin Sod/Tazobactam Sod (Zosyn 3.375 Gm Iv Premix) 3.375 gm in 50 mls @ 100 mls/hr IVPB Q6 [facility] Last Admin: 08/23/17 17:33 Dose: 100 mls/hr Acyclovir 500 mg/ Dextrose 100 mls @ 100 mls/hr IV Q8H [facility] Last Admin: 08/23/17 11:59 Dose: 100 mls/hr Vancomycin/Sodium Chloride (Vancocin) 1 gm in 200 mls @ 133.333 mls/hr IVPB Q12H [facility] Last Admin: 08/23/17 13:50 Dose: 133.333 mls/hr Ibuprofen (Motrin Tab) 400 mg PO TID PRN PRN Reason: Pain, Mild (1-3) Last Admin: 08/22/17 17:45 Dose: 400 mg Insulin Aspart (Novolog Mix 70/30 (70/30 Units/Ml)) 25 units SC BIDAC [facility] Last Admin: 08/23/17 17:32 Dose: 25 units Insulin Aspart (Novolog) 0 unit SC ACHS [facility] PRN Reason: Protocol Last Admin: 08/23/17 18:19 Dose: Not Given Insulin Glargine (Lantus) 15 unit SC HS [facility] Last Admin: 08/22/17 21:46 Dose: 15 unit Methadone HCl (Methadone) 10 mg PO BID PRN PRN Reason: Pain, moderate (4-7) Nifedipine (Procardia Xl) 90 mg PO DAILY [facility] Last Admin: 08/23/17 09:26 Dose: 90 mg Rosuvastatin Calcium (Crestor) 10 mg PO HS [facility] Last Admin: 08/22/17 21:45 Dose: 10 mg Sertraline HCl (Zoloft) 100 mg PO DAILY [facility] Last Admin: 08/23/17 09:27 Dose: 100 mg Sitagliptin Phosphate (Januvia) 100 mg PO DAILY [facility] Last Admin: 08/23/17 09:26 Dose: 100 mg - Labs Labs: 08/23/17 07:15 08/23/17 07:15 - Constitutional Appears: Well - Head Exam Head Exam: ATRAUMATIC, NORMAL INSPECTION, NORMOCEPHALIC - Eye Exam Eye Exam: EOMI, Normal appearance, PERRL Pupil Exam: NORMAL ACCOMODATION, PERRL - ENT Exam ENT Exam: Mucous Membranes Moist, Normal Exam - Neck Exam Neck Exam: Full ROM, Normal Inspection. absent: Lymphadenopathy - Respiratory Exam Respiratory Exam: Decreased Breath Sounds - Cardiovascular Exam Cardiovascular Exam: REGULAR RHYTHM, +S1, +S2 - GI/Abdominal Exam GI & Abdominal Exam: Soft, Diminished Bowel Sounds - Rectal Exam Rectal Exam: Deferred - Back Exam Back Exam: NORMAL INSPECTION - Neurological Exam Neurological Exam: Alert, Awake, CN II-XII Intact, Normal Gait, Oriented x3 - Psychiatric Exam Psychiatric exam: Normal Affect, Normal Mood - Skin Skin Exam: Dry, Intact, Normal Color, Warm Assessment and Plan (1) Cellulitis of scalp Status: Acute (2) Uncontrolled diabetes mellitus Status: Acute (3) Anxiety Status: Acute (4) Chest pain in adult Status: Acute (5) Cholecystitis Status: Acute (6) Depression with somatization Status: Acute (7) Diabetes mellitus Status: Acute (8) Muscle weakness Status: Acute (9) Obstructive sleep apnea of adult Status: Acute (10) Panic anxiety syndrome Status: Acute (11) Skin irritation Status: Acute (12) Syncope Status: Acute - Assessment and Plan (Free Text) Plan: Patient examined. Continue supportive care. Control RBS. Continue insulin, other antidiabetic medications. Continue antihypertensive medications, aspirin, supportive medications.
[2017-08-23] MEDS: (Lantus) Insulin Glargine, Recombinant SC SCH (21:52)
[2017-08-24] MEDS: HYDROmorphone 0.5 mg/0.5 ml ISec IVP PRN ×4 (02:51→19:19)
[2017-08-24] MEDS: Vancomycin 1 gm/NS 200 ml 1 GM/200 ML BAG IVPB SCH (02:55)
[2017-08-24] MEDS: Acyclovir 500 MG in Dextrose 5% In Water 100 ML IV SCH ×2 (04:30→16:30)
[2017-08-24] MEDS: Piperacill/Tazo 3.375gm in Dex 3.375 GM/50 ML BAG IVPB SCH (06:00)
[2017-08-24 06:41] LABS: BASO % 0.5 % (0.0-2.0); EOS # 0.3 K/uL (0.0-0.7); EOS % 5.1 % (0.0-4.0); HEMATOCRIT 31.8 % (34.0-47.0); LYMPH # 2.5 K/uL (1.0-4.3); LYMPH % 37.7 % (20.0-40.0); MEAN CELL VOLUME 78.1 fL (81.0-99.0); MEAN CORPUSCULAR HEMOGLOBIN 26.4 pg (27.0-31.0); MEAN CORPUSCULAR HGB CONC 33.7 g/dL (33.0-37.0); MEAN PLATELET VOLUME 7.4 fL (7.2-11.7); MONO # 0.4 K/uL (0.0-0.8); MONO % 6.8 % (0.0-10.0); RED CELL DISTRIBUTION WIDTH 14.5 % (11.5-14.5); WHITE BLOOD COUNT 6.6 K/uL (4.8-10.8)
[2017-08-24 07:04] LABS: POTASSIUM 3.6 mmol/L (3.6-5.2)
[2017-08-24 07:05] LABS: ALB/GLOB RATIO 1.1 (1.0-2.1); BILIRUBIN,TOTAL 0.2 mg/dL (0.2-1.3); CALCIUM 9.1 mg/dl (8.6-10.4); MAGNESIUM 1.8 mg/dL (1.6-2.3); PHOSPHOROUS 3.5 mg/dL (2.5-4.5); TOTAL PROTEIN 6.2 g/dL (6.3-8.3)
[2017-08-24] MEDS: (Novolog) Insulin Aspart, Recombinant 100 u/ml 10 ml vial SC SCH ×4 (08:08→22:01)
[2017-08-24] MEDS: (Novolog Mix 70/30) Insulin Aspart/Insulin Aspar 100 units/ml SC SCH ×2 (08:25→17:59)
[2017-08-24] MEDS: Enoxaparin 40 mg Syringe SC SCH (10:46)
[2017-08-24] MEDS: NIFEdipine 90 mg ER Tab PO SCH (10:47)
--- NOTE | 2017-08-24 12:42 | CP.PCM.PN ---
<Jayesh Navarro - Last Filed: 08/24/17 15:00> Subjective - Date & Time of Evaluation Date of Evaluation: 08/24/17 Time of Evaluation: 10:00 - Subjective Subjective: PGY3 on medicine Dr. Lau service: Pt seen and examined at bedside this morning. Pt reports further improvement with swelling and pain better controlled with medication today. Pt otherwise denied other symptoms. Headache improved somewhat as well. Objective - Vital Signs/Intake and Output Vital Signs (last 24 hours): Temp Pulse Resp BP Pulse Ox 98.1 F 58 L 20 149/71 96 08/24/17 07:17 08/24/17 07:17 08/24/17 07:17 08/24/17 07:17 08/24/17 07:17 Intake and Output: 08/24/17 08/24/17 06:59 18:59 Intake Total 300 Balance 300 - Medications Medications: Current Medications Alprazolam (Xanax) 0.5 mg PO HS PRN PRN Reason: Anxiety Last Admin: 08/22/17 21:45 Dose: 0.5 mg Aspirin (Aspirin Chewable) 81 mg PO DAILY [facility] Last Admin: 08/24/17 10:46 Dose: 81 mg Clopidogrel Bisulfate (Plavix) 75 mg PO DAILY [facility] Last Admin: 08/24/17 10:46 Dose: 75 mg Enoxaparin Sodium (Lovenox) 40 mg SC DAILY [facility] Last Admin: 08/24/17 10:46 Dose: 40 mg Famotidine (Pepcid) 20 mg PO BID [facility] Last Admin: 08/24/17 10:46 Dose: 20 mg Fenofibrate (Tricor) 145 mg PO DAILY [facility] Last Admin: 08/24/17 10:50 Dose: 145 mg Gabapentin (Neurontin) 300 mg PO Q8 [facility] Last Admin: 08/24/17 06:01 Dose: 300 mg Glimepiride (Amaryl) 4 mg PO BID [facility] Last Admin: 08/24/17 10:46 Dose: 4 mg Hydromorphone HCl (Dilaudid) 2 mg IVP Q4H PRN PRN Reason: Pain, severe (8-10) Last Admin: 08/24/17 08:16 Dose: 2 mg Vancomycin/Sodium Chloride (Vancocin) 1 gm in 200 mls @ 133.333 mls/hr IVPB Q12H [facility] Last Admin: 08/24/17 02:55 Dose: 133.333 mls/hr Piperacillin Sod/Tazobactam Sod (Zosyn 2.25 Gm Iv Premix) 2.25 gm in 50 mls @ 100 mls/hr IVPB Q6H [facility] Acyclovir 500 mg/ Dextrose 100 mls @ 100 mls/hr IV Q12H [facility] Ibuprofen (Motrin Tab) 400 mg PO TID PRN PRN Reason: Pain, Mild (1-3) Last Admin: 08/22/17 17:45 Dose: 400 mg Insulin Aspart (Novolog Mix 70/30 (70/30 Units/Ml)) 25 units SC BIDAC [facility] Last Admin: 08/24/17 08:25 Dose: Not Given Insulin Aspart (Novolog) 0 unit SC ACHS [facility] PRN Reason: Protocol Last Admin: 08/24/17 08:08 Dose: Not Given Insulin Glargine (Lantus) 15 unit SC HS [facility] Last Admin: 08/23/17 21:52 Dose: 15 unit Methadone HCl (Methadone) 10 mg PO BID PRN PRN Reason: Pain, moderate (4-7) Nifedipine (Procardia Xl) 90 mg PO DAILY [facility] Last Admin: 08/24/17 10:47 Dose: 90 mg Rosuvastatin Calcium (Crestor) 10 mg PO HS [facility] Last Admin: 08/23/17 21:51 Dose: 10 mg Sertraline HCl (Zoloft) 100 mg PO DAILY [facility] Last Admin: 08/24/17 10:47 Dose: 100 mg Sitagliptin Phosphate (Januvia) 100 mg PO DAILY [facility] Last Admin: 08/24/17 10:56 Dose: 100 mg - Labs Labs: 08/24/17 06:23 08/24/17 06:23 - Constitutional Appears: Non-toxic, No Acute Distress - Head Exam Head Exam: NORMOCEPHALIC - Eye Exam Eye Exam: Normal appearance. absent: Periorbital swelling Pupil Exam: NORMAL ACCOMODATION - ENT Exam ENT Exam: Mucous Membranes Moist - Respiratory Exam Respiratory Exam: Clear to Ausculation Bilateral, NORMAL BREATHING PATTERN. absent: Rales, Rhonchi, Wheezes - Cardiovascular Exam Cardiovascular Exam: REGULAR RHYTHM, +S1, +S2. absent: Gallop, Rubs - GI/Abdominal Exam GI & Abdominal Exam: Soft, Normal Bowel Sounds. absent: Tenderness - Neurological Exam Neurological Exam: Alert, Awake, Oriented x3 - Psychiatric Exam Psychiatric exam: Normal Mood - Skin Skin Exam: Intact Assessment and Plan - Assessment and Plan (Free Text) Assessment: Valeria-orbital cellulitis Admit to med-surg, likely secondary to Shingles CT Neck soft tissue (08/21/17): Minimal left lateral periorbital cellulitis with prominent left scalp convexity cellultiis primairily involving the frontal parietal distribution without obvious abscess. Cellulitus is preseptal without post-septal involvement (see full report). Dr. Montalvo, ID labor relations consultant, hep appreciated - Continue Acyclovir 500mg IV Q8H (first dose 08/21/17) - Continue Vancomycin 1gm IV Q12H (first dose 08/21/17) - Continue Zosyn 3.375 gm IV Q6H (first dose: 08/21/17) - Cefazolin given once in ED - Droplet/Contact Isolation per ID due to possibility of herpes zoster - f/u Herpes serology - CT orbit done showed left temporoparietal scalp cellulitis without involving left orbit. Worsening myositis in left sternocleidomastoid and left platysma muscles. Ophthalmology evaluation: Dr. Lenz, help appreciated - Spoke with Dr. Lenz who advised to treat for both zoster/cellulitis - Believes because pt showing no difficulty seeing, no urgent need for evaluation by him - Open to seeing pt in office as outpatient, or reconsult if needs arises Motrin 400mg PO TID for mild pain Methadone 10mg PO BID for moderate pain Dilaudid 2mg IVP q4H PRN for severe pain Neurontin 300mg PO q8H added blood culture (08/20/17): no growth x 48 hours x 2 CAD Plavix 75mg PO Daily Crestor 10mg PO HS ASA 81mg PO Daily - Lipid Panel: WNL Type two diabetes mellitus Poorly controlled -A1C: 11.2 Accuchecks Amaryl 4mg PO BID Januvia 100mg PO Daily Novolog 70/30 25 units SC BID Lantus 15 units SC HS HISS - aspart Hypokalemia Resolved Hx of Hypertriglyceridemia Tricor 145mg PO Daily - Lipid panel: WNL Depression Zoloft 100mg PO Daily Prophylaxis Lovenox 40mg SC Daily Pepcid 20mg PO BID [facility] Discussed with attending. All medical managment per Dr. Lester Lau. <[facility] Lau S - Last Filed: 10/05/17 11:14> Objective - Vital Signs/Intake and Output Vital Signs (last 24 hours): Temp Pulse Resp BP Pulse Ox 99.2 F 60 20 149/75 95 08/29/17 08:17 08/29/17 08:17 08/29/17 08:17 08/29/17 08:17 08/29/17 08:17 - Labs Labs: 08/29/17 11:46 08/29/17 11:46 Assessment and Plan (1) Cellulitis of scalp Status: Acute (2) Uncontrolled diabetes mellitus Status: Acute (3) Anxiety Status: Acute (4) Chest pain in adult Status: Acute (5) Cholecystitis Status: Acute (6) Depression with somatization Status: Acute (7) Diabetes mellitus Status: Acute (8) Muscle weakness Status: Acute (9) Obstructive sleep apnea of adult Status: Acute (10) Panic anxiety syndrome Status: Acute (11) Skin irritation Status: Acute (12) Syncope Status: Acute Attending/Attestation - Attestation I have personally seen and examined this patient.: Yes I have fully participated in the care of the patient.: Yes I have reviewed all pertinent clinical information, including history, physical exam and plan: Yes Notes (Text): Patient examined. Improvement in swelling and pain. Continue acyclovir. Continue piperacillin tazobactam. Vancomycin. Continue insulin, other antidiabetic medications. Continue antihypertensive medications and supportive medications.
[2017-08-24] MEDS: Piperacill/Tazo 2.25gm in Dex 2.25 GM/50 ML BAG IVPB SCH ×2 (12:45→18:00)
--- NOTE | 2017-08-24 19:26 | CP.PCM.PN ---
Subjective - Date & Time of Evaluation Date of Evaluation: 08/24/17 Time of Evaluation: 06:00 - Subjective Subjective: IV VANCO HELD CONT RX FOR CELLULITIS Objective - Vital Signs/Intake and Output Vital Signs (last 24 hours): Temp Pulse Resp BP Pulse Ox 98.3 F 64 20 113/67 97 08/24/17 15:20 08/24/17 15:20 08/24/17 15:20 08/24/17 15:20 08/24/17 15:20 - Medications Medications: Current Medications Alprazolam (Xanax) 0.5 mg PO HS PRN PRN Reason: Anxiety Last Admin: 08/22/17 21:45 Dose: 0.5 mg Aspirin (Aspirin Chewable) 81 mg PO DAILY [facility] Last Admin: 08/24/17 10:46 Dose: 81 mg Clopidogrel Bisulfate (Plavix) 75 mg PO DAILY [facility] Last Admin: 08/24/17 10:46 Dose: 75 mg Enoxaparin Sodium (Lovenox) 40 mg SC DAILY [facility] Last Admin: 08/24/17 10:46 Dose: 40 mg Famotidine (Pepcid) 20 mg PO BID [facility] Last Admin: 08/24/17 17:58 Dose: 20 mg Fenofibrate (Tricor) 145 mg PO DAILY [facility] Last Admin: 08/24/17 10:50 Dose: 145 mg Gabapentin (Neurontin) 300 mg PO Q8 [facility] Last Admin: 08/24/17 14:28 Dose: 300 mg Glimepiride (Amaryl) 4 mg PO BID [facility] Last Admin: 08/24/17 17:58 Dose: 4 mg Hydromorphone HCl (Dilaudid) 2 mg IVP Q4H PRN PRN Reason: Pain, severe (8-10) Last Admin: 08/24/17 19:19 Dose: 2 mg Piperacillin Sod/Tazobactam Sod (Zosyn 2.25 Gm Iv Premix) 2.25 gm in 50 mls @ 100 mls/hr IVPB Q6H [facility] Last Admin: 08/24/17 12:45 Dose: 100 mls/hr Acyclovir 500 mg/ Dextrose 100 mls @ 100 mls/hr IV Q12H [facility] Ibuprofen (Motrin Tab) 400 mg PO TID PRN PRN Reason: Pain, Mild (1-3) Last Admin: 08/22/17 17:45 Dose: 400 mg Insulin Aspart (Novolog Mix 70/30 (70/30 Units/Ml)) 25 units SC BIDAC [facility] Last Admin: 08/24/17 17:59 Dose: 25 units Insulin Aspart (Novolog) 0 unit SC ACHS [facility] PRN Reason: Protocol Last Admin: 08/24/17 18:04 Dose: 6 unit Insulin Glargine (Lantus) 15 unit SC HS [facility] Last Admin: 08/23/17 21:52 Dose: 15 unit Methadone HCl (Methadone) 10 mg PO BID PRN PRN Reason: Pain, moderate (4-7) Nifedipine (Procardia Xl) 90 mg PO DAILY [facility] Last Admin: 08/24/17 10:47 Dose: 90 mg Rosuvastatin Calcium (Crestor) 10 mg PO HS [facility] Last Admin: 08/23/17 21:51 Dose: 10 mg Sertraline HCl (Zoloft) 100 mg PO DAILY [facility] Last Admin: 08/24/17 10:47 Dose: 100 mg Sitagliptin Phosphate (Januvia) 100 mg PO DAILY [facility] Last Admin: 08/24/17 10:56 Dose: 100 mg - Labs Labs: 08/24/17 06:23 08/24/17 06:23 - Constitutional Appears: Non-toxic, Chronically Ill - Head Exam Head Exam: NORMOCEPHALIC - Eye Exam Eye Exam: PERRL - ENT Exam ENT Exam: Mucous Membranes Dry - Neck Exam Neck Exam: absent: Lymphadenopathy - Respiratory Exam Respiratory Exam: Decreased Breath Sounds - Cardiovascular Exam Cardiovascular Exam: REGULAR RHYTHM Assessment and Plan (1) Cellulitis of scalp Status: Acute (2) Uncontrolled diabetes mellitus Status: Acute
--- NOTE | 2017-08-24 20:30 | CP.PCM.PN ---
Subjective - Date & Time of Evaluation Date of Evaluation: 08/24/17 Time of Evaluation: 08:00 - Subjective Subjective: clinically same Objective - Vital Signs/Intake and Output Vital Signs (last 24 hours): Temp Pulse Resp BP Pulse Ox 98.3 F 64 20 113/67 97 08/24/17 15:20 08/24/17 15:20 08/24/17 15:20 08/24/17 15:20 08/24/17 15:20 - Medications Medications: Current Medications Alprazolam (Xanax) 0.5 mg PO HS PRN PRN Reason: Anxiety Last Admin: 08/22/17 21:45 Dose: 0.5 mg Aspirin (Aspirin Chewable) 81 mg PO DAILY [facility] Last Admin: 08/24/17 10:46 Dose: 81 mg Clopidogrel Bisulfate (Plavix) 75 mg PO DAILY [facility] Last Admin: 08/24/17 10:46 Dose: 75 mg Enoxaparin Sodium (Lovenox) 40 mg SC DAILY [facility] Last Admin: 08/24/17 10:46 Dose: 40 mg Famotidine (Pepcid) 20 mg PO BID [facility] Last Admin: 08/24/17 17:58 Dose: 20 mg Fenofibrate (Tricor) 145 mg PO DAILY [facility] Last Admin: 08/24/17 10:50 Dose: 145 mg Gabapentin (Neurontin) 300 mg PO Q8 [facility] Last Admin: 08/24/17 14:28 Dose: 300 mg Glimepiride (Amaryl) 4 mg PO BID [facility] Last Admin: 08/24/17 17:58 Dose: 4 mg Hydromorphone HCl (Dilaudid) 2 mg IVP Q4H PRN PRN Reason: Pain, severe (8-10) Last Admin: 08/24/17 19:19 Dose: 2 mg Piperacillin Sod/Tazobactam Sod (Zosyn 2.25 Gm Iv Premix) 2.25 gm in 50 mls @ 100 mls/hr IVPB Q6H [facility] Last Admin: 08/24/17 12:45 Dose: 100 mls/hr Acyclovir 500 mg/ Dextrose 100 mls @ 100 mls/hr IV Q12H [facility] Ibuprofen (Motrin Tab) 400 mg PO TID PRN PRN Reason: Pain, Mild (1-3) Last Admin: 08/22/17 17:45 Dose: 400 mg Insulin Aspart (Novolog Mix 70/30 (70/30 Units/Ml)) 25 units SC BIDAC [facility] Last Admin: 08/24/17 17:59 Dose: 25 units Insulin Aspart (Novolog) 0 unit SC ACHS [facility] PRN Reason: Protocol Last Admin: 08/24/17 18:04 Dose: 6 unit Insulin Glargine (Lantus) 15 unit SC HS [facility] Last Admin: 08/23/17 21:52 Dose: 15 unit Methadone HCl (Methadone) 10 mg PO BID PRN PRN Reason: Pain, moderate (4-7) Nifedipine (Procardia Xl) 90 mg PO DAILY [facility] Last Admin: 08/24/17 10:47 Dose: 90 mg Rosuvastatin Calcium (Crestor) 10 mg PO HS [facility] Last Admin: 08/23/17 21:51 Dose: 10 mg Sertraline HCl (Zoloft) 100 mg PO DAILY [facility] Last Admin: 08/24/17 10:47 Dose: 100 mg Sitagliptin Phosphate (Januvia) 100 mg PO DAILY [facility] Last Admin: 08/24/17 10:56 Dose: 100 mg - Labs Labs: 08/24/17 06:23 08/24/17 06:23 - Back Exam Back Exam: NORMAL INSPECTION - Neurological Exam Neurological Exam: Alert, Awake, CN II-XII Intact, Normal Gait, Oriented x3 - Psychiatric Exam Psychiatric exam: Normal Affect, Normal Mood - Skin Skin Exam: Dry, Intact, Normal Color, Warm Assessment and Plan (1) Cellulitis of scalp Status: Acute (2) Uncontrolled diabetes mellitus Status: Acute (3) Anxiety Status: Acute (4) Chest pain in adult Status: Acute (5) Cholecystitis Status: Acute (6) Depression with somatization Status: Acute (7) Diabetes mellitus Status: Acute (8) Muscle weakness Status: Acute (9) Obstructive sleep apnea of adult Status: Acute (10) Panic anxiety syndrome Status: Acute (11) Skin irritation Status: Acute (12) Syncope Status: Acute - Assessment and Plan (Free Text) Plan: Patient examined. ID consult done. Advised to stop vancomycin. Continue acyclovir and piperacillin tazobactam. Continuing treatment. Antidiabetic medications. Continue antihypertensive medication. Continue supportive care.
[2017-08-24] MEDS: (Lantus) Insulin Glargine, Recombinant SC SCH (21:58)
[2017-08-25] MEDS: Piperacill/Tazo 2.25gm in Dex 2.25 GM/50 ML BAG IVPB SCH ×4 (01:16→18:31)
[2017-08-25] MEDS: HYDROmorphone 0.5 mg/0.5 ml ISec IVP PRN ×5 (04:11→21:38)
[2017-08-25] MEDS: Acyclovir 500 MG in Dextrose 5% In Water 100 ML IV SCH ×2 (04:58→16:32)
[2017-08-25 07:07] LABS: BASO # 0.1 K/uL (0.0-0.2); BASO % 1.3 % (0.0-2.0); EOS # 0.3 K/uL (0.0-0.7); EOS % 5.8 % (0.0-4.0); LYMPH # 1.8 K/uL (1.0-4.3); LYMPH % 34.3 % (20.0-40.0); MEAN CELL VOLUME 78.9 fL (81.0-99.0); MEAN CORPUSCULAR HEMOGLOBIN 26.2 pg (27.0-31.0); MEAN CORPUSCULAR HGB CONC 33.2 g/dL (33.0-37.0); MEAN PLATELET VOLUME 7.3 fL (7.2-11.7); MONO # 0.3 K/uL (0.0-0.8); MONO % 5.9 % (0.0-10.0); NRBC % 0.1 % (0.0-2.0); RED CELL DISTRIBUTION WIDTH 14.3 % (11.5-14.5); WHITE BLOOD COUNT 5.3 K/uL (4.8-10.8)
[2017-08-25 07:51] LABS: POTASSIUM 3.9 mmol/L (3.6-5.2)
[2017-08-25 07:53] LABS: ALB/GLOB RATIO 1.1 (1.0-2.1); BILIRUBIN,TOTAL 0.4 mg/dL (0.2-1.3); TOTAL PROTEIN 6.5 g/dL (6.3-8.3)
[2017-08-25 07:54] LABS: CALCIUM 8.6 mg/dl (8.6-10.4); MAGNESIUM 1.9 mg/dL (1.6-2.3); PHOSPHOROUS 3.3 mg/dL (2.5-4.5)
[2017-08-25] MEDS: (Novolog Mix 70/30) Insulin Aspart/Insulin Aspar 100 units/ml SC SCH ×2 (08:32→16:44)
[2017-08-25] MEDS: (Novolog) Insulin Aspart, Recombinant 100 u/ml 10 ml vial SC SCH ×4 (08:33→22:02)
--- NOTE | 2017-08-25 09:49 | CP.PCM.PN ---
<MoisescullenAnkit - Last Filed: 08/25/17 21:37> Subjective - Date & Time of Evaluation Date of Evaluation: 08/25/17 Time of Evaluation: 09:47 - Subjective Subjective: PGY2 note for Dr. Lau's service: Pt seen and examined at bedside. Pt reports improvement with pain/swelling to left facial area. Pt still c/o elevated pain despite increase in dilaudid. She denies headache at this time, which she had yesterday. Patient denies vision changes, chest pain, SOB, palpitations, abdominal pain, constipation. Objective - Vital Signs/Intake and Output Vital Signs (last 24 hours): Temp Pulse Resp BP Pulse Ox 98.6 F 65 20 145/81 98 08/25/17 08:52 08/25/17 08:52 08/25/17 08:52 08/25/17 08:52 08/25/17 08:52 Intake and Output: 08/25/17 08/25/17 06:59 18:59 Intake Total 500 Balance 500 - Medications Medications: Current Medications Alprazolam (Xanax) 0.5 mg PO HS PRN PRN Reason: Anxiety Last Admin: 08/24/17 21:59 Dose: 0.5 mg Aspirin (Aspirin Chewable) 81 mg PO DAILY [facility] Last Admin: 08/24/17 10:46 Dose: 81 mg Clopidogrel Bisulfate (Plavix) 75 mg PO DAILY [facility] Last Admin: 08/24/17 10:46 Dose: 75 mg Enoxaparin Sodium (Lovenox) 40 mg SC DAILY [facility] Last Admin: 08/24/17 10:46 Dose: 40 mg Famotidine (Pepcid) 20 mg PO BID [facility] Last Admin: 08/24/17 17:58 Dose: 20 mg Fenofibrate (Tricor) 145 mg PO DAILY [facility] Last Admin: 08/24/17 10:50 Dose: 145 mg Gabapentin (Neurontin) 300 mg PO Q8 [facility] Last Admin: 08/25/17 06:13 Dose: 300 mg Glimepiride (Amaryl) 4 mg PO BID [facility] Last Admin: 08/24/17 17:58 Dose: 4 mg Hydromorphone HCl (Dilaudid) 2 mg IVP Q4H PRN PRN Reason: Pain, severe (8-10) Last Admin: 08/25/17 08:24 Dose: 2 mg Piperacillin Sod/Tazobactam Sod (Zosyn 2.25 Gm Iv Premix) 2.25 gm in 50 mls @ 100 mls/hr IVPB Q6H [facility] Last Admin: 08/25/17 05:29 Dose: 100 mls/hr Acyclovir 500 mg/ Dextrose 100 mls @ 100 mls/hr IV Q12H [facility] Last Admin: 08/25/17 04:58 Dose: 100 mls/hr Ibuprofen (Motrin Tab) 400 mg PO TID PRN PRN Reason: Pain, Mild (1-3) Last Admin: 08/22/17 17:45 Dose: 400 mg Insulin Aspart (Novolog Mix 70/30 (70/30 Units/Ml)) 25 units SC BIDAC [facility] Last Admin: 08/25/17 08:32 Dose: 25 units Insulin Aspart (Novolog) 0 unit SC ACHS [facility] PRN Reason: Protocol Last Admin: 08/25/17 08:33 Dose: 8 unit Insulin Glargine (Lantus) 15 unit SC HS [facility] Last Admin: 08/24/17 21:58 Dose: 15 unit Methadone HCl (Methadone) 10 mg PO BID PRN PRN Reason: Pain, moderate (4-7) Nifedipine (Procardia Xl) 90 mg PO DAILY [facility] Last Admin: 08/24/17 10:47 Dose: 90 mg Rosuvastatin Calcium (Crestor) 10 mg PO HS [facility] Last Admin: 08/24/17 21:59 Dose: 10 mg Sertraline HCl (Zoloft) 100 mg PO DAILY [facility] Last Admin: 08/24/17 10:47 Dose: 100 mg Sitagliptin Phosphate (Januvia) 100 mg PO DAILY [facility] Last Admin: 08/24/17 10:56 Dose: 100 mg - Labs Labs: 08/25/17 06:57 08/25/17 06:57 - Constitutional Appears: Non-toxic, No Acute Distress - Head Exam Head Exam: ATRAUMATIC, NORMOCEPHALIC - Eye Exam Eye Exam: EOMI Pupil Exam: NORMAL ACCOMODATION Additional comments: Left facial/periorbital swelling improved greatly from admission Vision intact - ENT Exam ENT Exam: Mucous Membranes Moist - Respiratory Exam Respiratory Exam: Clear to Ausculation Bilateral, NORMAL BREATHING PATTERN - Cardiovascular Exam Cardiovascular Exam: REGULAR RHYTHM, +S1, +S2 - GI/Abdominal Exam GI & Abdominal Exam: Soft, Normal Bowel Sounds. absent: Tenderness - Extremities Exam Extremities Exam: Normal Inspection. absent: Pedal Edema, Tenderness - Back Exam Back Exam: absent: CVA tenderness (L), CVA tenderness (R) - Neurological Exam Neurological Exam: Alert, Awake, Oriented x3 - Psychiatric Exam Psychiatric exam: Normal Affect - Skin Skin Exam: Normal Color, Warm Assessment and Plan - Assessment and Plan (Free Text) Plan: Valeria-orbital cellulitis Admit to med-surg, likely secondary to Shingles CT Neck soft tissue (08/21/17): Minimal left lateral periorbital cellulitis with prominent left scalp convexity cellultiis primairily involving the frontal parietal distribution without obvious abscess. Cellulitus is preseptal without post-septal involvement (see full report). Dr. Montalvo, ID staffing consultant, hep appreciated - Continue Acyclovir 500mg IV Q8H (first dose 08/21/17) - Continue Vancomycin 1gm IV Q12H (first dose 08/21/17) HELD - Continue Zosyn 3.375 gm IV Q6H (first dose: 08/21/17) - Cefazolin given once in ED - Droplet/Contact Isolation per ID due to possibility of herpes zoster - Herpes serology: HSV I IgG, other serology pending - CT orbit (08/22/17): showed left temporoparietal scalp cellulitis without involving left orbit. Worsening myositis in left sternocleidomastoid and left platysma muscles. Ophthalmology evaluation: Dr. Lenz, help appreciated - Spoke with Dr. Lenz who advised to treat for both zoster/cellulitis - Believes because pt showing no difficulty seeing, no urgent need for evaluation by him - Open to seeing pt in office as outpatient, or reconsult if needs arises Motrin 400mg PO TID for mild pain Methadone 10mg PO BID for moderate pain Dilaudid 2mg IVP q4H PRN for severe pain Neurontin 300mg PO q8H added blood culture (08/20/17): no growth x 3 days CAD Plavix 75mg PO Daily Crestor 10mg PO HS ASA 81mg PO Daily - Lipid Panel: WNL Type two diabetes mellitus Poorly controlled -A1C: 11.2 Accuchecks Amaryl 4mg PO BID Januvia 100mg PO Daily Novolog 70/30 25 units SC BID Lantus increased to 20 units SC HS HISS - aspart MADHAV Cr 1.3 today, from 0.8 on admission will start gentle hydration and monitor -NS @ 60 cc/hr Hypokalemia Resolved Hx of Hypertriglyceridemia Tricor 145mg PO Daily - Lipid panel: WNL Depression Zoloft 100mg PO Daily Prophylaxis Lovenox 40mg SC Daily Pepcid 20mg PO BID SCDs Discussed with attending. All medical management per Dr. Lester Lau. <[facility] Lau S - Last Filed: 10/05/17 11:16> Objective - Vital Signs/Intake and Output Vital Signs (last 24 hours): Temp Pulse Resp BP Pulse Ox 99.2 F 60 20 149/75 95 08/29/17 08:17 08/29/17 08:17 08/29/17 08:17 08/29/17 08:17 08/29/17 08:17 - Labs Labs: 08/29/17 11:46 08/29/17 11:46 Assessment and Plan (1) Cellulitis of scalp Status: Acute (2) Uncontrolled diabetes mellitus Status: Acute (3) Anxiety Status: Acute (4) Chest pain in adult Status: Acute (5) Cholecystitis Status: Acute (6) Depression with somatization Status: Acute (7) Diabetes mellitus Status: Acute (8) Muscle weakness Status: Acute (9) Obstructive sleep apnea of adult Status: Acute (10) Panic anxiety syndrome Status: Acute (11) Skin irritation Status: Acute (12) Syncope Status: Acute Attending/Attestation - Attestation I have personally seen and examined this patient.: Yes I have fully participated in the care of the patient.: Yes I have reviewed all pertinent clinical information, including history, physical exam and plan: Yes Notes (Text): Patient examined. Improvement in swelling and pain of the face. Creatinine is slightly Elevated at 1.3 today. Hydration. Continue acyclovir and by present does not know. Continue insulin. Other anti-diabetic medications, antihypertensive medications and supportive care.
[2017-08-25] MEDS: Enoxaparin 40 mg Syringe SC SCH (11:02)
[2017-08-25] MEDS: NIFEdipine 90 mg ER Tab PO SCH (11:09)
[2017-08-25] MEDS: Sodium Chloride 0.9% 1,000 ML IV SCH (13:04)
--- NOTE | 2017-08-25 14:54 | CP.PCM.PN ---
Subjective - Date & Time of Evaluation Date of Evaluation: 08/25/17 Time of Evaluation: 09:00 - Subjective Subjective: c/o pain alert responsive nad Objective - Vital Signs/Intake and Output Vital Signs (last 24 hours): Temp Pulse Resp BP Pulse Ox 98.6 F 65 20 145/81 98 08/25/17 08:52 08/25/17 08:52 08/25/17 08:52 08/25/17 08:52 08/25/17 08:52 Intake and Output: 08/25/17 08/25/17 06:59 18:59 Intake Total 500 Balance 500 - Medications Medications: Current Medications Alprazolam (Xanax) 0.5 mg PO HS PRN PRN Reason: Anxiety Last Admin: 08/24/17 21:59 Dose: 0.5 mg Aspirin (Aspirin Chewable) 81 mg PO DAILY [facility] Last Admin: 08/25/17 11:01 Dose: 81 mg Clopidogrel Bisulfate (Plavix) 75 mg PO DAILY [facility] Last Admin: 08/25/17 11:01 Dose: 75 mg Enoxaparin Sodium (Lovenox) 40 mg SC DAILY [facility] Last Admin: 08/25/17 11:02 Dose: 40 mg Famotidine (Pepcid) 20 mg PO BID [facility] Last Admin: 08/25/17 11:01 Dose: 20 mg Fenofibrate (Tricor) 145 mg PO DAILY [facility] Last Admin: 08/25/17 11:09 Dose: 145 mg Gabapentin (Neurontin) 300 mg PO Q8 [facility] Last Admin: 08/25/17 13:03 Dose: 300 mg Glimepiride (Amaryl) 4 mg PO BID [facility] Last Admin: 08/25/17 11:05 Dose: 4 mg Hydromorphone HCl (Dilaudid) 2 mg IVP Q4H PRN PRN Reason: Pain, severe (8-10) Last Admin: 08/25/17 13:01 Dose: 2 mg Piperacillin Sod/Tazobactam Sod (Zosyn 2.25 Gm Iv Premix) 2.25 gm in 50 mls @ 100 mls/hr IVPB Q6H [facility] Last Admin: 08/25/17 13:00 Dose: 100 mls/hr Acyclovir 500 mg/ Dextrose 100 mls @ 100 mls/hr IV Q12H [facility] Last Admin: 08/25/17 04:58 Dose: 100 mls/hr Sodium Chloride (Sodium Chloride 0.9%) 1,000 mls @ 60 mls/hr IV .[id number] [facility] Last Admin: 08/25/17 13:04 Dose: 60 mls/hr Ibuprofen (Motrin Tab) 400 mg PO TID PRN PRN Reason: Pain, Mild (1-3) Last Admin: 08/25/17 11:10 Dose: 400 mg Insulin Aspart (Novolog Mix 70/30 (70/30 Units/Ml)) 25 units SC BIDAC [facility] Last Admin: 08/25/17 08:32 Dose: 25 units Insulin Aspart (Novolog) 0 unit SC ACHS [facility] PRN Reason: Protocol Last Admin: 08/25/17 11:19 Dose: Not Given Insulin Glargine (Lantus) 20 unit SC HS [facility] Methadone HCl (Methadone) 10 mg PO BID PRN PRN Reason: Pain, moderate (4-7) Nifedipine (Procardia Xl) 90 mg PO DAILY [facility] Last Admin: 08/25/17 11:09 Dose: 90 mg Rosuvastatin Calcium (Crestor) 10 mg PO HS [facility] Last Admin: 08/24/17 21:59 Dose: 10 mg Sertraline HCl (Zoloft) 100 mg PO DAILY [facility] Last Admin: 08/25/17 11:10 Dose: 100 mg Sitagliptin Phosphate (Januvia) 100 mg PO DAILY [facility] Last Admin: 08/25/17 11:08 Dose: 100 mg - Labs Labs: 08/25/17 06:57 08/25/17 06:57 - Constitutional Appears: Non-toxic, Chronically Ill - Head Exam Head Exam: NORMOCEPHALIC - Eye Exam Eye Exam: PERRL - ENT Exam ENT Exam: Mucous Membranes Dry - Neck Exam Neck Exam: absent: Lymphadenopathy - Respiratory Exam Respiratory Exam: Decreased Breath Sounds - Cardiovascular Exam Cardiovascular Exam: REGULAR RHYTHM - GI/Abdominal Exam GI & Abdominal Exam: Distended, Soft - Rectal Exam Rectal Exam: Deferred - Exam Exam: NORMAL INSPECTION - Extremities Exam Extremities Exam: absent: Pedal Edema - Back Exam Back Exam: absent: CVA tenderness (L), CVA tenderness (R) Assessment and Plan (1) Cellulitis of scalp Status: Acute (2) Uncontrolled diabetes mellitus Status: Acute
--- NOTE | 2017-08-25 16:39 | CP.PCM.PN ---
Subjective - Date & Time of Evaluation Date of Evaluation: 08/25/17 Time of Evaluation: 07:40 - Subjective Subjective: clinically same Objective - Vital Signs/Intake and Output Vital Signs (last 24 hours): Temp Pulse Resp BP Pulse Ox 98.6 F 65 20 145/81 98 08/25/17 08:52 08/25/17 08:52 08/25/17 08:52 08/25/17 08:52 08/25/17 08:52 Intake and Output: 08/25/17 08/25/17 06:59 18:59 Intake Total 500 1400 Balance 500 1400 - Medications Medications: Current Medications Alprazolam (Xanax) 0.5 mg PO HS PRN PRN Reason: Anxiety Last Admin: 08/24/17 21:59 Dose: 0.5 mg Aspirin (Aspirin Chewable) 81 mg PO DAILY [facility] Last Admin: 08/25/17 11:01 Dose: 81 mg Clopidogrel Bisulfate (Plavix) 75 mg PO DAILY [facility] Last Admin: 08/25/17 11:01 Dose: 75 mg Enoxaparin Sodium (Lovenox) 40 mg SC DAILY [facility] Last Admin: 08/25/17 11:02 Dose: 40 mg Famotidine (Pepcid) 20 mg PO BID [facility] Last Admin: 08/25/17 11:01 Dose: 20 mg Fenofibrate (Tricor) 145 mg PO DAILY [facility] Last Admin: 08/25/17 11:09 Dose: 145 mg Gabapentin (Neurontin) 300 mg PO Q8 [facility] Last Admin: 08/25/17 13:03 Dose: 300 mg Glimepiride (Amaryl) 4 mg PO BID [facility] Last Admin: 08/25/17 11:05 Dose: 4 mg Hydromorphone HCl (Dilaudid) 2 mg IVP Q4H PRN PRN Reason: Pain, severe (8-10) Last Admin: 08/25/17 13:01 Dose: 2 mg Piperacillin Sod/Tazobactam Sod (Zosyn 2.25 Gm Iv Premix) 2.25 gm in 50 mls @ 100 mls/hr IVPB Q6H [facility] Last Admin: 08/25/17 13:00 Dose: 100 mls/hr Acyclovir 500 mg/ Dextrose 100 mls @ 100 mls/hr IV Q12H [facility] Last Admin: 08/25/17 16:32 Dose: 100 mls/hr Sodium Chloride (Sodium Chloride 0.9%) 1,000 mls @ 60 mls/hr IV .[id number] [facility] Last Admin: 08/25/17 13:04 Dose: 60 mls/hr Ibuprofen (Motrin Tab) 400 mg PO TID PRN PRN Reason: Pain, Mild (1-3) Last Admin: 08/25/17 11:10 Dose: 400 mg Insulin Aspart (Novolog Mix 70/30 (70/30 Units/Ml)) 25 units SC BIDAC [facility] Last Admin: 08/25/17 08:32 Dose: 25 units Insulin Aspart (Novolog) 0 unit SC ACHS [facility] PRN Reason: Protocol Last Admin: 08/25/17 11:19 Dose: Not Given Insulin Glargine (Lantus) 20 unit SC HS [facility] Methadone HCl (Methadone) 10 mg PO BID PRN PRN Reason: Pain, moderate (4-7) Nifedipine (Procardia Xl) 90 mg PO DAILY [facility] Last Admin: 08/25/17 11:09 Dose: 90 mg Rosuvastatin Calcium (Crestor) 10 mg PO [facility] Last Admin: 08/24/17 21:59 Dose: 10 mg Sertraline HCl (Zoloft) 100 mg PO DAILY [facility] Last Admin: 08/25/17 11:10 Dose: 100 mg Sitagliptin Phosphate (Januvia) 100 mg PO DAILY [facility] Last Admin: 08/25/17 11:08 Dose: 100 mg - Labs Labs: 08/25/17 06:57 08/25/17 06:57 - Constitutional Appears: Well - Head Exam Head Exam: ATRAUMATIC, NORMAL INSPECTION, NORMOCEPHALIC - Eye Exam Eye Exam: EOMI, Normal appearance, PERRL Pupil Exam: NORMAL ACCOMODATION, PERRL - ENT Exam ENT Exam: Mucous Membranes Moist, Normal Exam - Neck Exam Neck Exam: Full ROM, Normal Inspection. absent: Lymphadenopathy - Respiratory Exam Respiratory Exam: Decreased Breath Sounds - Cardiovascular Exam Cardiovascular Exam: REGULAR RHYTHM, +S1, +S2 - GI/Abdominal Exam GI & Abdominal Exam: Soft, Diminished Bowel Sounds - Rectal Exam Rectal Exam: Deferred - Back Exam Back Exam: NORMAL INSPECTION - Neurological Exam Neurological Exam: Alert, Awake, CN II-XII Intact, Normal Gait, Oriented x3 - Psychiatric Exam Psychiatric exam: Normal Affect, Normal Mood - Skin Skin Exam: Dry, Intact, Normal Color, Warm Assessment and Plan (1) Cellulitis of scalp Status: Acute (2) Uncontrolled diabetes mellitus Status: Acute (3) Anxiety Status: Acute (4) Chest pain in adult Status: Acute (5) Cholecystitis Status: Acute (6) Depression with somatization Status: Acute (7) Diabetes mellitus Status: Acute (8) Muscle weakness Status: Acute (9) Obstructive sleep apnea of adult Status: Acute (10) Panic anxiety syndrome Status: Acute (11) Skin irritation Status: Acute (12) Syncope Status: Acute - Assessment and Plan (Free Text) Plan: Patient examined. Continue acyclovir and piperacillin tazobactam. Continue antidiabetic medications, antihypertensive medications, supportive care.
[2017-08-25 19:53] LABS: SPECIMEN SOURCE Serum
[2017-08-25] MEDS: (Lantus) Insulin Glargine, Recombinant SC SCH (21:46)
[2017-08-26] MEDS: Piperacill/Tazo 2.25gm in Dex 2.25 GM/50 ML BAG IVPB SCH ×4 (00:08→18:48)
[2017-08-26] MEDS: HYDROmorphone 0.5 mg/0.5 ml ISec IVP PRN ×5 (03:20→22:38)
[2017-08-26] MEDS: Acyclovir 500 MG in Dextrose 5% In Water 100 ML IV SCH ×2 (05:00→16:12)
[2017-08-26] MEDS: Sodium Chloride 0.9% 1,000 ML IV SCH ×2 (06:22→20:00)
[2017-08-26] MEDS: (Novolog Mix 70/30) Insulin Aspart/Insulin Aspar 100 units/ml SC SCH ×2 (08:02→17:10)
[2017-08-26] MEDS: (Novolog) Insulin Aspart, Recombinant 100 u/ml 10 ml vial SC SCH ×4 (08:03→22:15)
[2017-08-26 08:42] LABS: BASO % 0.4 % (0.0-2.0); EOS # 0.2 K/uL (0.0-0.7); HEMATOCRIT 32.8 % (34.0-47.0); LYMPH # 1.8 K/uL (1.0-4.3); MEAN CELL VOLUME 78.6 fL (81.0-99.0); MEAN CORPUSCULAR HEMOGLOBIN 26.7 pg (27.0-31.0); MEAN CORPUSCULAR HGB CONC 33.9 g/dL (33.0-37.0); MEAN PLATELET VOLUME 7.2 fL (7.2-11.7); MONO # 0.5 K/uL (0.0-0.8); MONO % 6.3 % (0.0-10.0); NRBC % 0.1 % (0.0-2.0); RED CELL DISTRIBUTION WIDTH 14.8 % (11.5-14.5); WHITE BLOOD COUNT 7.5 K/uL (4.8-10.8)
[2017-08-26 08:57] LABS: ALB/GLOB RATIO 1.1 (1.0-2.1); BILIRUBIN,TOTAL 0.4 mg/dL (0.2-1.3); TOTAL PROTEIN 6.9 g/dL (6.3-8.3)
[2017-08-26 08:58] LABS: CALCIUM 8.8 mg/dl (8.6-10.4); MAGNESIUM 1.9 mg/dL (1.6-2.3); PHOSPHOROUS 3.3 mg/dL (2.5-4.5)
[2017-08-26] MEDS: Enoxaparin 40 mg Syringe SC SCH (10:08)
[2017-08-26] MEDS: NIFEdipine 90 mg ER Tab PO SCH (10:11)
--- NOTE | 2017-08-26 11:22 | CP.PCM.PN ---
Subjective - Date & Time of Evaluation Date of Evaluation: 08/26/17 Time of Evaluation: 07:40 - Subjective Subjective: clinically same Objective - Vital Signs/Intake and Output Vital Signs (last 24 hours): Temp Pulse Resp BP Pulse Ox 98.1 F 84 20 168/75 H 96 08/26/17 08:00 08/26/17 08:00 08/26/17 08:00 08/26/17 08:00 08/26/17 08:00 Intake and Output: 08/26/17 08/26/17 06:59 18:59 Intake Total 990 Balance 990 - Medications Medications: Current Medications Alprazolam (Xanax) 0.5 mg PO HS PRN PRN Reason: Anxiety Last Admin: 08/24/17 21:59 Dose: 0.5 mg Aspirin (Aspirin Chewable) 81 mg PO DAILY [facility] Last Admin: 08/26/17 10:08 Dose: 81 mg Clopidogrel Bisulfate (Plavix) 75 mg PO DAILY [facility] Last Admin: 08/26/17 10:09 Dose: 75 mg Enoxaparin Sodium (Lovenox) 40 mg SC DAILY [facility] Last Admin: 08/26/17 10:08 Dose: 40 mg Famotidine (Pepcid) 20 mg PO BID [facility] Last Admin: 08/26/17 10:09 Dose: 20 mg Fenofibrate (Tricor) 145 mg PO DAILY [facility] Last Admin: 08/26/17 10:11 Dose: 145 mg Gabapentin (Neurontin) 300 mg PO Q8 [facility] Last Admin: 08/26/17 05:43 Dose: 300 mg Glimepiride (Amaryl) 4 mg PO BID [facility] Last Admin: 08/26/17 10:08 Dose: 4 mg Hydromorphone HCl (Dilaudid) 2 mg IVP Q4H PRN PRN Reason: Pain, severe (8-10) Last Admin: 08/26/17 08:01 Dose: 2 mg Piperacillin Sod/Tazobactam Sod (Zosyn 2.25 Gm Iv Premix) 2.25 gm in 50 mls @ 100 mls/hr IVPB Q6H [facility] Last Admin: 08/26/17 05:42 Dose: 100 mls/hr Acyclovir 500 mg/ Dextrose 100 mls @ 100 mls/hr IV Q12H [facility] Last Admin: 08/26/17 05:00 Dose: 100 mls/hr Sodium Chloride (Sodium Chloride 0.9%) 1,000 mls @ 60 mls/hr IV .[id number] [facility] Last Admin: 08/26/17 06:22 Dose: Not Given Ibuprofen (Motrin Tab) 400 mg PO TID PRN PRN Reason: Pain, Mild (1-3) Last Admin: 08/25/17 20:19 Dose: 400 mg Insulin Aspart (Novolog Mix 70/30 (70/30 Units/Ml)) 25 units SC BIDAC [facility] Last Admin: 08/26/17 08:02 Dose: 25 units Insulin Aspart (Novolog) 0 unit SC ACHS [facility] PRN Reason: Protocol Last Admin: 08/26/17 08:03 Dose: 2 unit Insulin Glargine (Lantus) 20 unit SC HS [facility] Last Admin: 08/25/17 21:46 Dose: 20 unit Methadone HCl (Methadone) 10 mg PO BID PRN PRN Reason: Pain, moderate (4-7) Nifedipine (Procardia Xl) 90 mg PO DAILY [facility] Last Admin: 08/26/17 10:11 Dose: 90 mg Rosuvastatin Calcium (Crestor) 10 mg PO HS [facility] Last Admin: 08/25/17 21:38 Dose: 10 mg Sertraline HCl (Zoloft) 100 mg PO DAILY [facility] Last Admin: 08/26/17 10:10 Dose: 100 mg Sitagliptin Phosphate (Januvia) 100 mg PO DAILY [facility] Last Admin: 08/26/17 10:08 Dose: 100 mg - Labs Labs: 08/26/17 08:17 08/26/17 08:17 - Constitutional Appears: Well - Head Exam Head Exam: ATRAUMATIC, NORMAL INSPECTION, NORMOCEPHALIC - Eye Exam Eye Exam: EOMI, Normal appearance, PERRL Pupil Exam: NORMAL ACCOMODATION, PERRL - ENT Exam ENT Exam: Mucous Membranes Moist, Normal Exam - Neck Exam Neck Exam: Full ROM, Normal Inspection. absent: Lymphadenopathy - Respiratory Exam Respiratory Exam: Decreased Breath Sounds - Cardiovascular Exam Cardiovascular Exam: REGULAR RHYTHM, +S1, +S2 - GI/Abdominal Exam GI & Abdominal Exam: Soft, Diminished Bowel Sounds - Rectal Exam Rectal Exam: Deferred - Back Exam Back Exam: NORMAL INSPECTION - Neurological Exam Neurological Exam: Alert, Awake, CN II-XII Intact, Normal Gait, Oriented x3 - Psychiatric Exam Psychiatric exam: Normal Affect, Normal Mood - Skin Skin Exam: Dry, Intact, Normal Color, Warm Assessment and Plan (1) Cellulitis of scalp Status: Acute (2) Uncontrolled diabetes mellitus Status: Acute (3) Anxiety Status: Acute (4) Chest pain in adult Status: Acute (5) Cholecystitis Status: Acute (6) Depression with somatization Status: Acute (7) Diabetes mellitus Status: Acute (8) Muscle weakness Status: Acute (9) Obstructive sleep apnea of adult Status: Acute (10) Panic anxiety syndrome Status: Acute (11) Skin irritation Status: Acute (12) Syncope Status: Acute - Assessment and Plan (Free Text) Plan: Patient examined. Continue acyclovir and piperacillin tazobactam. Continue antidiabetic medications, antihypertensive medications, supportive care.
[2017-08-26] MEDS: (Lantus) Insulin Glargine, Recombinant SC SCH (22:17)
[2017-08-27] MEDS: Piperacill/Tazo 2.25gm in Dex 2.25 GM/50 ML BAG IVPB SCH ×5 (00:09→23:42)
[2017-08-27] MEDS: HYDROmorphone 0.5 mg/0.5 ml ISec IVP PRN ×2 (04:59→09:00)
[2017-08-27] MEDS: Acyclovir 500 MG in Dextrose 5% In Water 100 ML IV SCH ×2 (05:02→16:58)
[2017-08-27] MEDS: (Novolog Mix 70/30) Insulin Aspart/Insulin Aspar 100 units/ml SC SCH ×2 (07:57→16:57)
[2017-08-27] MEDS: (Novolog) Insulin Aspart, Recombinant 100 u/ml 10 ml vial SC SCH ×4 (07:57→21:46)
[2017-08-27] MEDS: Enoxaparin 40 mg Syringe SC SCH (09:02)
[2017-08-27] MEDS: NIFEdipine 90 mg ER Tab PO SCH (09:06)
[2017-08-27] MEDS: Sodium Chloride 0.9% 1,000 ML IV SCH (11:53)
--- NOTE | 2017-08-27 17:10 | CP.PCM.PN ---
Subjective - Date & Time of Evaluation Date of Evaluation: 08/27/17 Time of Evaluation: 08:00 - Subjective Subjective: less pain' no fever Objective - Vital Signs/Intake and Output Vital Signs (last 24 hours): Temp Pulse Resp BP Pulse Ox 98.3 F 67 20 164/83 H 97 08/27/17 15:00 08/27/17 15:00 08/27/17 15:00 08/27/17 15:00 08/27/17 15:00 Intake and Output: 08/27/17 08/27/17 06:59 18:59 Intake Total 950 Balance 950 - Medications Medications: Current Medications Alprazolam (Xanax) 0.5 mg PO HS PRN PRN Reason: Anxiety Last Admin: 08/24/17 21:59 Dose: 0.5 mg Aspirin (Aspirin Chewable) 81 mg PO DAILY [facility] Last Admin: 08/27/17 09:02 Dose: 81 mg Clopidogrel Bisulfate (Plavix) 75 mg PO DAILY [facility] Last Admin: 08/27/17 09:02 Dose: 75 mg Enoxaparin Sodium (Lovenox) 40 mg SC DAILY [facility] Last Admin: 08/27/17 09:02 Dose: 40 mg Famotidine (Pepcid) 20 mg PO BID [facility] Last Admin: 08/27/17 09:02 Dose: 20 mg Fenofibrate (Tricor) 145 mg PO DAILY [facility] Last Admin: 08/27/17 09:06 Dose: 145 mg Gabapentin (Neurontin) 300 mg PO Q8 [facility] Last Admin: 08/27/17 14:02 Dose: 300 mg Glimepiride (Amaryl) 4 mg PO BID [facility] Last Admin: 08/27/17 09:06 Dose: 4 mg Piperacillin Sod/Tazobactam Sod (Zosyn 2.25 Gm Iv Premix) 2.25 gm in 50 mls @ 100 mls/hr IVPB Q6H [facility] Last Admin: 08/27/17 12:17 Dose: 100 mls/hr Acyclovir 500 mg/ Dextrose 100 mls @ 100 mls/hr IV Q12H [facility] Last Admin: 08/27/17 16:58 Dose: 100 mls/hr Sodium Chloride (Sodium Chloride 0.9%) 1,000 mls @ 60 mls/hr IV .[id number] [facility] Last Admin: 08/27/17 11:53 Dose: Not Given Ibuprofen (Motrin Tab) 400 mg PO TID PRN PRN Reason: Pain, Mild (1-3) Last Admin: 08/26/17 12:16 Dose: 400 mg Insulin Aspart (Novolog Mix 70/30 (70/30 Units/Ml)) 25 units SC BIDAC [facility] Last Admin: 08/27/17 16:57 Dose: 25 units Insulin Aspart (Novolog) 0 unit SC ACHS [facility] PRN Reason: Protocol Last Admin: 08/27/17 16:57 Dose: 2 unit Insulin Glargine (Lantus) 20 unit SC HS [facility] Last Admin: 08/26/17 22:17 Dose: 20 unit Nifedipine (Procardia Xl) 90 mg PO DAILY [facility] Last Admin: 08/27/17 09:06 Dose: 90 mg Rosuvastatin Calcium (Crestor) 10 mg PO HS [facility] Last Admin: 08/26/17 22:13 Dose: 10 mg Sertraline HCl (Zoloft) 100 mg PO DAILY [facility] Last Admin: 08/27/17 09:02 Dose: 100 mg Sitagliptin Phosphate (Januvia) 100 mg PO DAILY [facility] Last Admin: 08/27/17 09:02 Dose: 100 mg - Labs Labs: 08/26/17 08:17 08/26/17 08:17 - Constitutional Appears: Non-toxic, Chronically Ill - Head Exam Head Exam: NORMOCEPHALIC - Eye Exam Eye Exam: PERRL - ENT Exam ENT Exam: Mucous Membranes Dry - Neck Exam Neck Exam: absent: Lymphadenopathy - Respiratory Exam Respiratory Exam: Decreased Breath Sounds - Cardiovascular Exam Cardiovascular Exam: REGULAR RHYTHM, +S1, +S2 - GI/Abdominal Exam GI & Abdominal Exam: Distended, Soft Assessment and Plan (1) Cellulitis of scalp Status: Acute (2) Uncontrolled diabetes mellitus Status: Acute
--- NOTE | 2017-08-27 20:11 | CP.PCM.PN ---
Subjective - Date & Time of Evaluation Date of Evaluation: 08/27/17 Time of Evaluation: 07:40 - Subjective Subjective: clinically same Objective - Vital Signs/Intake and Output Vital Signs (last 24 hours): Temp Pulse Resp BP Pulse Ox 98.3 F 67 20 164/83 H 97 08/27/17 15:00 08/27/17 15:00 08/27/17 15:00 08/27/17 15:00 08/27/17 15:00 - Medications Medications: Current Medications Alprazolam (Xanax) 0.5 mg PO HS PRN PRN Reason: Anxiety Last Admin: 08/24/17 21:59 Dose: 0.5 mg Aspirin (Aspirin Chewable) 81 mg PO DAILY [facility] Last Admin: 08/27/17 09:02 Dose: 81 mg Clopidogrel Bisulfate (Plavix) 75 mg PO DAILY [facility] Last Admin: 08/27/17 09:02 Dose: 75 mg Enoxaparin Sodium (Lovenox) 40 mg SC DAILY [facility] Last Admin: 08/27/17 09:02 Dose: 40 mg Famotidine (Pepcid) 20 mg PO BID [facility] Last Admin: 08/27/17 17:32 Dose: 20 mg Fenofibrate (Tricor) 145 mg PO DAILY [facility] Last Admin: 08/27/17 09:06 Dose: 145 mg Gabapentin (Neurontin) 300 mg PO Q8 [facility] Last Admin: 08/27/17 14:02 Dose: 300 mg Glimepiride (Amaryl) 4 mg PO BID [facility] Last Admin: 08/27/17 17:32 Dose: 4 mg Piperacillin Sod/Tazobactam Sod (Zosyn 2.25 Gm Iv Premix) 2.25 gm in 50 mls @ 100 mls/hr IVPB Q6H [facility] Last Admin: 08/27/17 17:32 Dose: 100 mls/hr Acyclovir 500 mg/ Dextrose 100 mls @ 100 mls/hr IV Q12H [facility] Last Admin: 08/27/17 16:58 Dose: 100 mls/hr Sodium Chloride (Sodium Chloride 0.9%) 1,000 mls @ 60 mls/hr IV .[id number] [facility] Last Admin: 08/27/17 11:53 Dose: Not Given Ibuprofen (Motrin Tab) 400 mg PO TID PRN PRN Reason: Pain, Mild (1-3) Last Admin: 08/26/17 12:16 Dose: 400 mg Insulin Aspart (Novolog Mix 70/30 (70/30 Units/Ml)) 25 units SC BIDAC [facility] Last Admin: 08/27/17 16:57 Dose: 25 units Insulin Aspart (Novolog) 0 unit SC ACHS [facility] PRN Reason: Protocol Last Admin: 08/27/17 16:57 Dose: 2 unit Insulin Glargine (Lantus) 20 unit SC HS [facility] Last Admin: 08/26/17 22:17 Dose: 20 unit Nifedipine (Procardia Xl) 90 mg PO DAILY [facility] Last Admin: 08/27/17 09:06 Dose: 90 mg Rosuvastatin Calcium (Crestor) 10 mg PO HS [facility] Last Admin: 08/26/17 22:13 Dose: 10 mg Sertraline HCl (Zoloft) 100 mg PO DAILY [facility] Last Admin: 08/27/17 09:02 Dose: 100 mg Sitagliptin Phosphate (Januvia) 100 mg PO DAILY [facility] Last Admin: 08/27/17 09:02 Dose: 100 mg - Labs Labs: 08/26/17 08:17 08/26/17 08:17 - Constitutional Appears: Well - Head Exam Head Exam: ATRAUMATIC, NORMAL INSPECTION, NORMOCEPHALIC - Eye Exam Eye Exam: EOMI, Normal appearance, PERRL Pupil Exam: NORMAL ACCOMODATION, PERRL - ENT Exam ENT Exam: Mucous Membranes Moist, Normal Exam - Neck Exam Neck Exam: Full ROM, Normal Inspection. absent: Lymphadenopathy - Respiratory Exam Respiratory Exam: Decreased Breath Sounds - Cardiovascular Exam Cardiovascular Exam: REGULAR RHYTHM, +S1, +S2 - GI/Abdominal Exam GI & Abdominal Exam: Soft, Diminished Bowel Sounds - Rectal Exam Rectal Exam: Deferred - Back Exam Back Exam: NORMAL INSPECTION - Neurological Exam Neurological Exam: Alert, Awake, CN II-XII Intact, Normal Gait, Oriented x3 - Psychiatric Exam Psychiatric exam: Normal Affect, Normal Mood - Skin Skin Exam: Dry, Intact, Normal Color, Warm Assessment and Plan (1) Cellulitis of scalp Status: Acute (2) Uncontrolled diabetes mellitus Status: Acute (3) Anxiety Status: Acute (4) Chest pain in adult Status: Acute (5) Cholecystitis Status: Acute (6) Depression with somatization Status: Acute (7) Diabetes mellitus Status: Acute (8) Muscle weakness Status: Acute (9) Obstructive sleep apnea of adult Status: Acute (10) Panic anxiety syndrome Status: Acute (11) Skin irritation Status: Acute (12) Syncope Status: Acute - Assessment and Plan (Free Text) Plan: Patient examined. Continue acyclovir and piperacillin tazobactam. Continue antidiabetic medications, antihypertensive medications, supportive care.
[2017-08-27] MEDS: (Lantus) Insulin Glargine, Recombinant SC SCH (21:54)
[2017-08-28] MEDS: Acyclovir 500 MG in Dextrose 5% In Water 100 ML IV SCH ×2 (05:26→17:10)
[2017-08-28] MEDS: Sodium Chloride 0.9% 1,000 ML IV SCH (05:27)
[2017-08-28] MEDS: Piperacill/Tazo 2.25gm in Dex 2.25 GM/50 ML BAG IVPB SCH ×4 (05:27→23:45)
[2017-08-28] MEDS: (Novolog) Insulin Aspart, Recombinant 100 u/ml 10 ml vial SC SCH ×4 (07:58→22:17)
[2017-08-28] MEDS: (Novolog Mix 70/30) Insulin Aspart/Insulin Aspar 100 units/ml SC SCH ×2 (08:31→17:10)
[2017-08-28] MEDS: Enoxaparin 40 mg Syringe SC SCH (10:17)
[2017-08-28] MEDS: NIFEdipine 90 mg ER Tab PO SCH (10:18)
--- NOTE | 2017-08-28 11:40 | CP.PCM.PN ---
Subjective - Date & Time of Evaluation Date of Evaluation: 08/28/17 Time of Evaluation: 08:00 - Subjective Subjective: improving slowly c/o pain afebrile Objective - Vital Signs/Intake and Output Vital Signs (last 24 hours): Temp Pulse Resp BP Pulse Ox 97.7 F 74 20 154/67 H 98 08/28/17 08:23 08/28/17 08:23 08/28/17 08:23 08/28/17 08:23 08/28/17 08:23 Intake and Output: 08/28/17 08/28/17 06:59 18:59 Intake Total 1200 Balance 1200 - Medications Medications: Current Medications Aspirin (Aspirin Chewable) 81 mg PO DAILY [facility] Last Admin: 08/28/17 10:16 Dose: 81 mg Clopidogrel Bisulfate (Plavix) 75 mg PO DAILY [facility] Last Admin: 08/28/17 10:16 Dose: 75 mg Famotidine (Pepcid) 20 mg PO BID [facility] Last Admin: 08/28/17 10:16 Dose: 20 mg Fenofibrate (Tricor) 145 mg PO DAILY [facility] Last Admin: 08/28/17 10:17 Dose: 145 mg Gabapentin (Neurontin) 300 mg PO Q8 [facility] Last Admin: 08/28/17 05:25 Dose: 300 mg Glimepiride (Amaryl) 4 mg PO BID [facility] Last Admin: 08/28/17 10:17 Dose: 4 mg Piperacillin Sod/Tazobactam Sod (Zosyn 2.25 Gm Iv Premix) 2.25 gm in 50 mls @ 100 mls/hr IVPB Q6H [facility] Last Admin: 08/28/17 05:27 Dose: 100 mls/hr Acyclovir 500 mg/ Dextrose 100 mls @ 100 mls/hr IV Q12H [facility] Last Admin: 08/28/17 05:26 Dose: 100 mls/hr Ibuprofen (Motrin Tab) 400 mg PO TID PRN PRN Reason: Pain, Mild (1-3) Last Admin: 08/28/17 10:15 Dose: 400 mg Insulin Aspart (Novolog Mix 70/30 (70/30 Units/Ml)) 25 units SC BIDAC [facility] Last Admin: 08/28/17 08:31 Dose: Not Given Insulin Aspart (Novolog) 0 unit SC ACHS [facility] PRN Reason: Protocol Last Admin: 08/28/17 07:58 Dose: Not Given Insulin Glargine (Lantus) 20 unit SC [facility] Last Admin: 08/27/17 21:54 Dose: 20 unit Nifedipine (Procardia Xl) 90 mg PO DAILY [facility] Last Admin: 08/28/17 10:18 Dose: 90 mg Rosuvastatin Calcium (Crestor) 10 mg PO HS [facility] Last Admin: 08/27/17 21:53 Dose: 10 mg Sertraline HCl (Zoloft) 100 mg PO DAILY [facility] Last Admin: 08/28/17 10:17 Dose: 100 mg Sitagliptin Phosphate (Januvia) 100 mg PO DAILY [facility] Last Admin: 08/28/17 10:16 Dose: 100 mg - Labs Labs: 08/26/17 08:17 08/26/17 08:17 - Constitutional Appears: Non-toxic, Chronically Ill - Head Exam Head Exam: NORMOCEPHALIC - Eye Exam Eye Exam: PERRL - ENT Exam ENT Exam: Mucous Membranes Dry, Normal External Ear Exam - Neck Exam Neck Exam: absent: Lymphadenopathy - Respiratory Exam Respiratory Exam: Decreased Breath Sounds - Cardiovascular Exam Cardiovascular Exam: REGULAR RHYTHM - GI/Abdominal Exam GI & Abdominal Exam: Distended Assessment and Plan (1) Cellulitis of scalp Status: Acute (2) Uncontrolled diabetes mellitus Status: Acute
--- NOTE | 2017-08-28 12:34 | CP.PCM.CON ---
<SatnamBetsy L. - Last Filed: 08/28/17 15:12> History of Present Illness - History of Present Illness History of Present Illness: General Surgery Consult Note for Dr. Merino Consulted for: wound evaluation/ possible debridement HPI: Patient is a 67 year old F with pmhx of Diabetes Mellitus, HTN, CAD, anxiety, and depression who presented to the ED on 08/20 for swelling and cellulitis of the left scalp. She had a lot of pain and pressure on the left side of her face and eye that had started about 5 days prior to admission and was worsening. CT of the orbit showed scalp cellulitis, but no orbit involvement. Patient is being treated with antibiotics and acylovir for possible zoster per Dr. Montalvo. Today patient says she is feeling much better but still has left sided scalp pain which she rates an 8/10. Patient says the swelling has significantly decreased since her admission. Patient denies any nausea, vomiting, constipation, or diarrhea. PMHx: Diabetes Mellitus, HTN, CAD, anxiety, and depression Psurg: cholecystectomy, unknown foot and ankle surgery Famhx: 2 daughters with DM Allergies: NKDA Social: quit smoking 15 years ago, hx of 40 pack years, denies any alcohol or drug use Review of Systems - Constitutional Constitutional: absent: Chills, Fever - EENT Eyes: absent: Blurred Vision, Change in Vision, Diplopia - Cardiovascular Cardiovascular: absent: Chest Pain, Dyspnea, Leg Edema, Palpitations - Respiratory Respiratory: absent: Cough, Dyspnea on Exertion, Wheezing - Gastrointestinal Gastrointestinal: absent: Abdominal Pain, Constipation, Diarrhea, Nausea, Vomiting - Genitourinary Genitourinary: absent: Difficulty Urinating - Integumentary Additional comments: left sided scalp cellulitis that is edematous - Neurological Neurological: absent: Dizziness - Hematologic/Lymphatic Hematologic: absent: Easy Bleeding, Easy Bruising Past Patient History - Past Medical History & Family History Past Medical History?: Yes - Past Social History Smoking Status: Never Smoked - CARDIAC Hx Cardiac Disorders: Yes Hx Hypertension: Yes - PULMONARY Hx Respiratory Disorders: No - NEUROLOGICAL Hx Neurological Disorder: No - HEENT Hx HEENT Problems: No - RENAL Hx Chronic Kidney Disease: No - ENDOCRINE/METABOLIC Hx Diabetes Mellitus Type 2: Yes - HEMATOLOGICAL/ONCOLOGICAL Hx Blood Disorders: No - INTEGUMENTARY Hx Dermatological Problems: No - MUSCULOSKELETAL/RHEUMATOLOGICAL Hx Arthritis: Yes - GASTROINTESTINAL Hx Gastrointestinal Disorders: Yes Hx Gall Bladder Disease: Yes - GENITOURINARY/GYNECOLOGICAL Hx Genitourinary Disorders: No - PSYCHIATRIC Hx Psychophysiologic Disorder: Yes Hx Anxiety: Yes Hx Depression: Yes Hx Substance Use: No - SURGICAL HISTORY Hx Surgeries: Yes Hx Cholecystectomy: Yes - ANESTHESIA Hx Anesthesia: Yes Hx Anesthesia Reactions: No Hx Malignant Hyperthermia: No Meds Allergies/Adverse Reactions: Allergies Allergy/AdvReac Type Severity Reaction Status Date / Time No Known Allergies Allergy Verified 08/20/17 17:34 - Medications Medications: Current Medications Aspirin (Aspirin Chewable) 81 mg PO DAILY [facility] Last Admin: 08/28/17 10:16 Dose: 81 mg Clopidogrel Bisulfate (Plavix) 75 mg PO DAILY [facility] Last Admin: 08/28/17 10:16 Dose: 75 mg Famotidine (Pepcid) 20 mg PO BID [facility] Last Admin: 08/28/17 10:16 Dose: 20 mg Fenofibrate (Tricor) 145 mg PO DAILY [facility] Last Admin: 08/28/17 10:17 Dose: 145 mg Gabapentin (Neurontin) 300 mg PO Q8 [facility] Last Admin: 08/28/17 05:25 Dose: 300 mg Glimepiride (Amaryl) 4 mg PO BID [facility] Last Admin: 08/28/17 10:17 Dose: 4 mg Piperacillin Sod/Tazobactam Sod (Zosyn 2.25 Gm Iv Premix) 2.25 gm in 50 mls @ 100 mls/hr IVPB Q6H [facility] Last Admin: 08/28/17 05:27 Dose: 100 mls/hr Acyclovir 500 mg/ Dextrose 100 mls @ 100 mls/hr IV Q12H [facility] Last Admin: 08/28/17 05:26 Dose: 100 mls/hr Ibuprofen (Motrin Tab) 400 mg PO TID PRN PRN Reason: Pain, Mild (1-3) Last Admin: 08/28/17 10:15 Dose: 400 mg Insulin Aspart (Novolog Mix 70/30 (70/30 Units/Ml)) 25 units SC BIDAC [facility] Last Admin: 08/28/17 08:31 Dose: Not Given Insulin Aspart (Novolog) 0 unit SC ACHS [facility] PRN Reason: Protocol Last Admin: 08/28/17 12:04 Dose: Not Given Insulin Glargine (Lantus) 20 unit SC HS [facility] Last Admin: 08/27/17 21:54 Dose: 20 unit Nifedipine (Procardia Xl) 90 mg PO DAILY [facility] Last Admin: 08/28/17 10:18 Dose: 90 mg Rosuvastatin Calcium (Crestor) 10 mg PO HS [facility] Last Admin: 08/27/17 21:53 Dose: 10 mg Sertraline HCl (Zoloft) 100 mg PO DAILY [facility] Last Admin: 08/28/17 10:17 Dose: 100 mg Sitagliptin Phosphate (Januvia) 100 mg PO DAILY [facility] Last Admin: 08/28/17 10:16 Dose: 100 mg Physical Exam - Constitutional Appears: Non-toxic, No Acute Distress - Head Exam Additional comments: Diabetes Mellitus, HTN, CAD, anxiety, and depression - Eye Exam Eye Exam: EOMI, Normal appearance - ENT Exam ENT Exam: Mucous Membranes Moist - Respiratory Exam Respiratory Exam: NORMAL BREATHING PATTERN. absent: Accessory Muscle Use, Respiratory Distress - Cardiovascular Exam Cardiovascular Exam: REGULAR RHYTHM - GI/Abdominal Exam GI & Abdominal Exam: Normal Bowel Sounds, Soft. absent: Distended, Firm - Extremities Exam Extremities exam: Positive for: normal inspection. Negative for: pedal edema - Neurological Exam Neurological exam: Alert, Oriented x3 - Psychiatric Exam Psychiatric exam: Normal Affect, Normal Mood - Skin Skin Exam: Warm Additional comments: left scalp lesion that is edematous and tender Results - Vital Signs Recent Vital Signs: Last Vital Signs Temp 97.7 F 08/28/17 08:23 Pulse 74 08/28/17 08:23 Resp 20 08/28/17 08:23 BP 154/67 H 08/28/17 08:23 Pulse Ox 98 08/28/17 08:23 - Labs Result Diagrams: 08/26/17 08:17 08/26/17 08:17 Labs: Laboratory Results - last 24 hr 08/27/17 08/27/17 08/28/17 16:13 21:23 02:18 POC Glucose (mg/dL) 191 H 101 66 08/28/17 08/28/17 08/28/17 02:52 07:23 11:16 POC Glucose (mg/dL) 105 132 H 147 H Assessment & Plan - Assessment and Plan (Free Text) Assessment: 67 F with pmhx DM, CAD, HTN, anxiety, and depression with a left sided scalp cellulitis Plan: continue antibiotics as per ID continue medical management as per primary apply warm compresses TID D/W Dr. Merino <Sascha Merino - Last Filed: 09/03/17 17:57> Results - Vital Signs Recent Vital Signs: Last Vital Signs Temp 99.2 F 08/29/17 08:17 Pulse 60 08/29/17 08:17 Resp 20 08/29/17 08:17 BP 149/75 08/29/17 08:17 Pulse Ox 95 08/29/17 08:17 - Labs Result Diagrams: 08/29/17 11:46 08/29/17 11:46 Attending/Attestation - Attestation I have personally seen and examined this patient.: Yes I have fully participated in the care of the patient.: Yes I have reviewed all pertinent clinical information: Yes Notes (Text): 09/03/17 17:56 Pt was seen and examined at bedside Pt with left scalp cellulitis No drainable abscess C/w IV antibiotics If cellulitis converts into abscess, pt would need I & D of abscess Plan d.w pt in detail Plan d/w primary team We will f.u.
--- NOTE | 2017-08-28 18:55 | CP.PCM.PN ---
Subjective - Date & Time of Evaluation Date of Evaluation: 08/28/17 Time of Evaluation: 07:40 - Subjective Subjective: clinically same Objective - Vital Signs/Intake and Output Vital Signs (last 24 hours): Temp Pulse Resp BP Pulse Ox 97.3 F L 91 H 20 143/81 97 08/28/17 15:00 08/28/17 15:00 08/28/17 15:00 08/28/17 15:00 08/28/17 15:00 Intake and Output: 08/28/17 08/28/17 06:59 18:59 Intake Total 1200 600 Balance 1200 600 - Medications Medications: Current Medications Aspirin (Aspirin Chewable) 81 mg PO DAILY [facility] Last Admin: 08/28/17 10:16 Dose: 81 mg Clopidogrel Bisulfate (Plavix) 75 mg PO DAILY [facility] Last Admin: 08/28/17 10:16 Dose: 75 mg Famotidine (Pepcid) 20 mg PO BID [facility] Last Admin: 08/28/17 17:57 Dose: 20 mg Fenofibrate (Tricor) 145 mg PO DAILY [facility] Last Admin: 08/28/17 10:17 Dose: 145 mg Gabapentin (Neurontin) 300 mg PO Q8 [facility] Last Admin: 08/28/17 14:25 Dose: 300 mg Glimepiride (Amaryl) 4 mg PO BID [facility] Last Admin: 08/28/17 17:57 Dose: 4 mg Piperacillin Sod/Tazobactam Sod (Zosyn 2.25 Gm Iv Premix) 2.25 gm in 50 mls @ 100 mls/hr IVPB Q6H [facility] Last Admin: 08/28/17 17:58 Dose: 100 mls/hr Acyclovir 500 mg/ Dextrose 100 mls @ 100 mls/hr IV Q12H [facility] Last Admin: 08/28/17 17:10 Dose: 100 mls/hr Ibuprofen (Motrin Tab) 400 mg PO TID PRN PRN Reason: Pain, Mild (1-3) Last Admin: 08/28/17 14:25 Dose: 400 mg Insulin Aspart (Novolog Mix 70/30 (70/30 Units/Ml)) 25 units SC BIDAC [facility] Last Admin: 08/28/17 17:10 Dose: 25 units Insulin Aspart (Novolog) 0 unit SC ACHS [facility] PRN Reason: Protocol Last Admin: 08/28/17 17:10 Dose: 4 unit Insulin Glargine (Lantus) 20 unit SC [facility] Last Admin: 08/27/17 21:54 Dose: 20 unit Ketorolac Tromethamine (Toradol) 15 mg IVP Q8H PRN PRN Reason: Pain, severe (8-10) Last Admin: 08/28/17 16:30 Dose: 15 mg Nifedipine (Procardia Xl) 90 mg PO DAILY [facility] Last Admin: 08/28/17 10:18 Dose: 90 mg Rosuvastatin Calcium (Crestor) 10 mg PO [facility] Last Admin: 08/27/17 21:53 Dose: 10 mg Sertraline HCl (Zoloft) 100 mg PO DAILY [facility] Last Admin: 08/28/17 10:17 Dose: 100 mg Sitagliptin Phosphate (Januvia) 100 mg PO DAILY [facility] Last Admin: 08/28/17 10:16 Dose: 100 mg - Labs Labs: 08/26/17 08:17 08/26/17 08:17 - Constitutional Appears: Well - Head Exam Head Exam: ATRAUMATIC, NORMAL INSPECTION, NORMOCEPHALIC - Eye Exam Eye Exam: EOMI, Normal appearance, PERRL Pupil Exam: NORMAL ACCOMODATION, PERRL - ENT Exam ENT Exam: Mucous Membranes Moist, Normal Exam - Neck Exam Neck Exam: Full ROM, Normal Inspection. absent: Lymphadenopathy - Respiratory Exam Respiratory Exam: Decreased Breath Sounds - Cardiovascular Exam Cardiovascular Exam: REGULAR RHYTHM, +S1, +S2 - GI/Abdominal Exam GI & Abdominal Exam: Soft, Diminished Bowel Sounds - Rectal Exam Rectal Exam: Deferred - Back Exam Back Exam: NORMAL INSPECTION - Neurological Exam Neurological Exam: Alert, Awake, CN II-XII Intact, Normal Gait, Oriented x3 - Psychiatric Exam Psychiatric exam: Normal Affect, Normal Mood - Skin Skin Exam: Dry, Intact, Normal Color, Warm Assessment and Plan (1) Cellulitis of scalp Status: Acute (2) Uncontrolled diabetes mellitus Status: Acute (3) Anxiety Status: Acute (4) Chest pain in adult Status: Acute (5) Cholecystitis Status: Acute (6) Depression with somatization Status: Acute (7) Diabetes mellitus Status: Acute (8) Muscle weakness Status: Acute (9) Obstructive sleep apnea of adult Status: Acute (10) Panic anxiety syndrome Status: Acute (11) Skin irritation Status: Acute (12) Syncope Status: Acute - Assessment and Plan (Free Text) Plan: Surgical consult done for wound debridement. Advised conservative and medical management. Patient examined. Continue acyclovir and piperacillin tazobactam. Continue antidiabetic medications, antihypertensive medications, supportive care.
[2017-08-28] MEDS: (Lantus) Insulin Glargine, Recombinant SC SCH (22:06)
[2017-08-29] MEDS: Piperacill/Tazo 2.25gm in Dex 2.25 GM/50 ML BAG IVPB SCH ×6 (00:07→12:24)
[2017-08-29 01:57] VITALS: TEMP 99.2
[2017-08-29] MEDS: Acyclovir 500 MG in Dextrose 5% In Water 100 ML IV SCH ×2 (05:10→06:08)
[2017-08-29] MEDS: (Novolog) Insulin Aspart, Recombinant 100 u/ml 10 ml vial SC SCH ×2 (07:52→12:15)
--- NOTE | 2017-08-29 07:54 | CP.PCM.PN ---
Addendum entered and electronically signed by Nyasia Santana DO 08/29/17 10:21: Pt seen and examined. Agree w/ note. Pt discussed w/ Dr. Angelique Santana DO PGY2 Original Note: <Betsy Hay - Last Filed: 08/29/17 09:00> Subjective - Date & Time of Evaluation Date of Evaluation: 08/29/17 Time of Evaluation: 07:00 - Subjective Subjective: General Surgery Note for Dr. Merino Patient seen and examined and in no acute distress. Today patient says she is feeling much better but still has left sided scalp pain. Patient says the swelling has significantly decreased since her admission. Patient denies any nausea, vomiting, constipation, or diarrhea. Objective - Vital Signs/Intake and Output Vital Signs (last 24 hours): Temp Pulse Resp BP Pulse Ox 99.2 F 67 20 160/78 H 96 08/29/17 00:00 08/29/17 00:00 08/29/17 00:00 08/29/17 00:00 08/29/17 00:00 Intake and Output: 08/29/17 08/29/17 06:59 18:59 Intake Total 600 Balance 600 - Medications Medications: Current Medications Aspirin (Aspirin Chewable) 81 mg PO DAILY [facility] Last Admin: 08/28/17 10:16 Dose: 81 mg Clopidogrel Bisulfate (Plavix) 75 mg PO DAILY [facility] Last Admin: 08/28/17 10:16 Dose: 75 mg Famotidine (Pepcid) 20 mg PO BID [facility] Last Admin: 08/28/17 17:57 Dose: 20 mg Fenofibrate (Tricor) 145 mg PO DAILY [facility] Last Admin: 08/28/17 10:17 Dose: 145 mg Gabapentin (Neurontin) 300 mg PO Q8 [facility] Last Admin: 08/29/17 05:08 Dose: 300 mg Glimepiride (Amaryl) 4 mg PO BID [facility] Last Admin: 08/28/17 17:57 Dose: 4 mg Piperacillin Sod/Tazobactam Sod (Zosyn 2.25 Gm Iv Premix) 2.25 gm in 50 mls @ 100 mls/hr IVPB Q6H [facility] Last Admin: 08/29/17 06:06 Dose: 100 mls/hr Acyclovir 500 mg/ Dextrose 100 mls @ 100 mls/hr IV Q12H [facility] Last Admin: 08/29/17 06:08 Dose: 100 mls/hr Ibuprofen (Motrin Tab) 400 mg PO TID PRN PRN Reason: Pain, Mild (1-3) Last Admin: 08/28/17 14:25 Dose: 400 mg Insulin Aspart (Novolog Mix 70/30 (70/30 Units/Ml)) 25 units SC BIDAC [facility] Last Admin: 08/28/17 17:10 Dose: 25 units Insulin Aspart (Novolog) 0 unit SC ACHS [facility] PRN Reason: Protocol Last Admin: 08/28/17 22:17 Dose: Not Given Insulin Glargine (Lantus) 20 unit SC HS [facility] Last Admin: 08/28/17 22:06 Dose: 20 unit Ketorolac Tromethamine (Toradol) 15 mg IVP Q8H PRN PRN Reason: Pain, severe (8-10) Last Admin: 08/29/17 00:29 Dose: 15 mg Nifedipine (Procardia Xl) 90 mg PO DAILY [facility] Last Admin: 08/28/17 10:18 Dose: 90 mg Rosuvastatin Calcium (Crestor) 10 mg PO HS [facility] Last Admin: 08/28/17 22:05 Dose: 10 mg Sertraline HCl (Zoloft) 100 mg PO DAILY [facility] Last Admin: 08/28/17 10:17 Dose: 100 mg Sitagliptin Phosphate (Januvia) 100 mg PO DAILY [facility] Last Admin: 08/28/17 10:16 Dose: 100 mg - Labs Labs: 08/26/17 08:17 08/26/17 08:17 - Constitutional Appears: Non-toxic, No Acute Distress - Head Exam Head Exam: NORMOCEPHALIC Additional comments: left scalp lesion that is edematous and tender - Eye Exam Eye Exam: EOMI, Normal appearance - ENT Exam ENT Exam: Mucous Membranes Moist - Respiratory Exam Respiratory Exam: Clear to Ausculation Bilateral, NORMAL BREATHING PATTERN - Cardiovascular Exam Cardiovascular Exam: REGULAR RHYTHM, +S1, +S2 - GI/Abdominal Exam GI & Abdominal Exam: Soft. absent: Tenderness - Extremities Exam Extremities Exam: Normal Inspection. absent: Pedal Edema - Neurological Exam Neurological Exam: Alert, Awake, Oriented x3 - Psychiatric Exam Psychiatric exam: Normal Affect, Normal Mood - Skin Skin Exam: Normal Color, Warm Additional comments: left scalp lesion that is edematous and tender Assessment and Plan - Assessment and Plan (Free Text) Assessment: 67 F with pmhx DM, CAD, HTN, anxiety, and depression with a left sided scalp cellulitis Plan: continue antibiotics as per ID continue medical management as per primary apply warm compresses TID no surgical intervention at this time, please re-consult if needed D/W Dr. Merino <Sascha Merino - Last Filed: 09/03/17 18:03> Objective - Vital Signs/Intake and Output Vital Signs (last 24 hours): Temp Pulse Resp BP Pulse Ox 99.2 F 60 20 149/75 95 08/29/17 08:17 08/29/17 08:17 08/29/17 08:17 08/29/17 08:17 08/29/17 08:17 - Labs Labs: 08/29/17 11:46 08/29/17 11:46 Attending/Attestation - Attestation I have personally seen and examined this patient.: Yes I have fully participated in the care of the patient.: Yes I have reviewed all pertinent clinical information, including history, physical exam and plan: Yes Notes (Text): 09/03/17 18:02 Pt was seen and examined at bedside Pt with Scalp cellulitis No drainable collection C/w IV or PO antibiotics Plan d.w pt in detail
[2017-08-29 08:18] VITALS: BP 149/75; PULSE 60; O2SAT 95
--- NOTE | 2017-08-29 09:17 | CP.PCM.PN ---
<MoisesHugo bermanic - Last Filed: 08/29/17 15:11> Subjective - Date & Time of Evaluation Date of Evaluation: 08/29/17 Time of Evaluation: 09:13 - Subjective Subjective: PGY2 note for Dr. Lau's service: Pt seen and examined at bedside. Pt reports resolution of pain to scalp/eye area on left. She has been deemed no longer infectious per ID, pt marked for discharge today. Patient denies vision changes, chest pain, SOB, palpitations, abdominal pain, constipation. Objective - Vital Signs/Intake and Output Vital Signs (last 24 hours): Temp Pulse Resp BP Pulse Ox 99.2 F 60 20 149/75 95 08/29/17 08:17 08/29/17 08:17 08/29/17 08:17 08/29/17 08:17 08/29/17 08:17 Intake and Output: 08/29/17 08/29/17 06:59 18:59 Intake Total 600 Balance 600 - Medications Medications: Current Medications Aspirin (Aspirin Chewable) 81 mg PO DAILY [facility] Last Admin: 08/28/17 10:16 Dose: 81 mg Clopidogrel Bisulfate (Plavix) 75 mg PO DAILY [facility] Last Admin: 08/28/17 10:16 Dose: 75 mg Famotidine (Pepcid) 20 mg PO BID [facility] Last Admin: 08/28/17 17:57 Dose: 20 mg Fenofibrate (Tricor) 145 mg PO DAILY [facility] Last Admin: 08/28/17 10:17 Dose: 145 mg Gabapentin (Neurontin) 300 mg PO Q8 [facility] Last Admin: 08/29/17 05:08 Dose: 300 mg Glimepiride (Amaryl) 4 mg PO BID [facility] Last Admin: 08/28/17 17:57 Dose: 4 mg Piperacillin Sod/Tazobactam Sod (Zosyn 2.25 Gm Iv Premix) 2.25 gm in 50 mls @ 100 mls/hr IVPB Q6H [facility] Last Admin: 08/29/17 06:06 Dose: 100 mls/hr Acyclovir 500 mg/ Dextrose 100 mls @ 100 mls/hr IV Q12H [facility] Last Admin: 08/29/17 06:08 Dose: 100 mls/hr Ibuprofen (Motrin Tab) 400 mg PO TID PRN PRN Reason: Pain, Mild (1-3) Last Admin: 08/28/17 14:25 Dose: 400 mg Insulin Aspart (Novolog Mix 70/30 (70/30 Units/Ml)) 25 units SC BIDAC [facility] Last Admin: 08/28/17 17:10 Dose: 25 units Insulin Aspart (Novolog) 0 unit SC ACHS [facility] PRN Reason: Protocol Last Admin: 08/28/17 22:17 Dose: Not Given Insulin Glargine (Lantus) 20 unit SC HS [facility] Last Admin: 08/28/17 22:06 Dose: 20 unit Ketorolac Tromethamine (Toradol) 15 mg IVP Q8H PRN PRN Reason: Pain, severe (8-10) Last Admin: 08/29/17 00:29 Dose: 15 mg Nifedipine (Procardia Xl) 90 mg PO DAILY [facility] Last Admin: 08/28/17 10:18 Dose: 90 mg Rosuvastatin Calcium (Crestor) 10 mg PO HS [facility] Last Admin: 08/28/17 22:05 Dose: 10 mg Sertraline HCl (Zoloft) 100 mg PO DAILY [facility] Last Admin: 08/28/17 10:17 Dose: 100 mg Sitagliptin Phosphate (Januvia) 100 mg PO DAILY [facility] Last Admin: 08/28/17 10:16 Dose: 100 mg - Labs Labs: 08/26/17 08:17 08/26/17 08:17 - Constitutional Appears: Non-toxic, No Acute Distress - Head Exam Head Exam: ATRAUMATIC Additional comments: Swelling improved, Zoster scabbed over - Neck Exam Neck Exam: Full ROM - Respiratory Exam Respiratory Exam: Clear to Ausculation Bilateral, NORMAL BREATHING PATTERN. absent: Rales, Rhonchi, Wheezes - Cardiovascular Exam Cardiovascular Exam: REGULAR RHYTHM, +S1, +S2 - GI/Abdominal Exam GI & Abdominal Exam: Soft, Normal Bowel Sounds - Extremities Exam Extremities Exam: Normal Inspection. absent: Pedal Edema - Back Exam Back Exam: absent: CVA tenderness (L), CVA tenderness (R) - Neurological Exam Neurological Exam: Alert, Awake, Oriented x3 - Psychiatric Exam Psychiatric exam: Normal Affect - Skin Skin Exam: Dry, Normal Color, Warm Assessment and Plan - Assessment and Plan (Free Text) Plan: Valeria-orbital cellulitis Admit to med-surg, likely secondary to Shingles CT Neck soft tissue (08/21/17): Minimal left lateral periorbital cellulitis with prominent left scalp convexity cellultiis primairily involving the frontal parietal distribution without obvious abscess. Cellulitus is preseptal without post-septal involvement (see full report). Dr. Montalvo, ID analytics consultant, help appreciated Pt to be discharged with Famvir/Clindamycin, Isolation can be cancelled - Continue Acyclovir 500mg IV Q8H (first dose 08/21/17) - Continue Zosyn 3.375 gm IV Q6H (first dose: 08/21/17) - Cefazolin given once in ED - Droplet/Contact Isolation per ID due to possibility of herpes zoster - Herpes serology: HSV I IgG, other serology pending - CT orbit (08/22/17): showed left temporoparietal scalp cellulitis without involving left orbit. Worsening myositis in left sternocleidomastoid and left platysma muscles. Dr. Merino, medical consultant, help appreciated - apply warm compress, continue antibiotics Ophthalmology evaluation: Dr. Lenz, help appreciated - Spoke with Dr. Lenz who advised to treat for both zoster/cellulitis - Believes because pt showing no difficulty seeing, no urgent need for evaluation by him - Open to seeing pt in office as outpatient, or reconsult if needs arises Toradol 15mg IV Q8H Neurontin 300mg PO q8H added blood culture (08/20/17): no growth x 5 days CAD Plavix 75mg PO Daily Crestor 10mg PO HS ASA 81mg PO Daily - Lipid Panel: WNL Type two diabetes mellitus Improved control -A1C: 11.2 Accuchecks Amaryl 4mg PO BID Januvia 100mg PO Daily Novolog 70/30 25 units SC BID Lantus 20 units SC HS HISS - aspart MADHAV Cr today, from 0.8 on admission Hypokalemia Resolved Hx of Hypertriglyceridemia Tricor 145mg PO Daily - Lipid panel: WNL Depression Zoloft 100mg PO Daily Prophylaxis Lovenox 40mg SC Daily Pepcid 20mg PO BID SCDs Disposition: Pt to be discharged with Famvir/Clindamycin Ankit Bowers PGY-2 Discussed with attending. All medical management per Dr. Lester Lau. <[facility] Lau - Last Filed: 10/05/17 11:23> Objective - Vital Signs/Intake and Output Vital Signs (last 24 hours): Temp Pulse Resp BP Pulse Ox 99.2 F 60 20 149/75 95 08/29/17 08:17 08/29/17 08:17 08/29/17 08:17 08/29/17 08:17 08/29/17 08:17 - Labs Labs: 08/29/17 11:46 08/29/17 11:46 Assessment and Plan (1) Cellulitis of scalp Status: Acute (2) Uncontrolled diabetes mellitus Status: Acute (3) Anxiety Status: Acute (4) Chest pain in adult Status: Acute (5) Cholecystitis Status: Acute (6) Depression with somatization Status: Acute (7) Diabetes mellitus Status: Acute (8) Muscle weakness Status: Acute (9) Obstructive sleep apnea of adult Status: Acute (10) Panic anxiety syndrome Status: Acute (11) Skin irritation Status: Acute (12) Syncope Status: Acute Attending/Attestation - Attestation I have personally seen and examined this patient.: Yes I have fully participated in the care of the patient.: Yes I have reviewed all pertinent clinical information, including history, physical exam and plan: Yes Notes (Text): Patient marked for discharge today. Patient examined. Continue acyclovir and piperacillin tazobactam. Continue antidiabetic medications, antihypertensive medications, supportive care.
[2017-08-29] MEDS: (Novolog Mix 70/30) Insulin Aspart/Insulin Aspar 100 units/ml SC SCH (11:06)
[2017-08-29] MEDS: NIFEdipine 90 mg ER Tab PO SCH (11:06)
[2017-08-29 12:00] LABS: BASO % 0.3 % (0.0-2.0); EOS # 0.1 K/uL (0.0-0.7); EOS % 1.4 % (0.0-4.0); HEMATOCRIT 32.6 % (34.0-47.0); LYMPH # 2.4 K/uL (1.0-4.3); LYMPH % 34.7 % (20.0-40.0); MEAN CELL VOLUME 79.3 fL (81.0-99.0); MEAN CORPUSCULAR HEMOGLOBIN 26.6 pg (27.0-31.0); MEAN CORPUSCULAR HGB CONC 33.6 g/dL (33.0-37.0); MEAN PLATELET VOLUME 7.1 fL (7.2-11.7); MONO # 0.4 K/uL (0.0-0.8); MONO % 5.4 % (0.0-10.0); RED CELL DISTRIBUTION WIDTH 14.8 % (11.5-14.5); WHITE BLOOD COUNT 6.9 K/uL (4.8-10.8)
[2017-08-29 12:11] LABS: CHLORIDE 100 mmol/L (98-107); POTASSIUM 3.6 mmol/L (3.6-5.2); SODIUM 141 mmol/L (132-148)
[2017-08-29 12:13] LABS: ALKALINE PHOSPHATASE 56 U/L (38-126); ALT/SGPT 16 U/L (9-52); AST/SGOT 20 U/L (14-36); BILIRUBIN,TOTAL 0.4 mg/dL (0.2-1.3); BLOOD UREA NITROGEN 10 mg/dL (7-17); CARBON DIOXIDE 26 mmol/L (22-30); GFR AFRICAN-AMERICAN > 60; GLUCOSE,RANDOM 249 mg/dL (65-105); TOTAL PROTEIN 7.6 g/dL (6.3-8.3)
[2017-08-29 12:14] LABS: CALCIUM 8.7 mg/dl (8.6-10.4); PHOSPHOROUS 2.8 mg/dL (2.5-4.5)
--- NOTE | 2017-08-29 12:41 | CP.PCM.PN ---
Subjective - Date & Time of Evaluation Date of Evaluation: 08/29/17 Time of Evaluation: 09:00 - Subjective Subjective: DISCUSSED ON ROUNDS LESIONS DRY CONT RX OUT PT Objective - Vital Signs/Intake and Output Vital Signs (last 24 hours): Temp Pulse Resp BP Pulse Ox 99.2 F 60 20 149/75 95 08/29/17 08:17 08/29/17 08:17 08/29/17 08:17 08/29/17 08:17 08/29/17 08:17 Intake and Output: 08/29/17 08/29/17 06:59 18:59 Intake Total 600 Balance 600 - Medications Medications: Current Medications Aspirin (Aspirin Chewable) 81 mg PO DAILY [facility] [place] Last Admin: 08/29/17 11:04 Dose: 81 mg Clopidogrel Bisulfate (Plavix) 75 mg PO DAILY [facility] [place] Last Admin: 08/29/17 11:04 Dose: 75 mg Famotidine (Pepcid) 20 mg PO BID [facility] [place] Last Admin: 08/29/17 11:04 Dose: 20 mg Fenofibrate (Tricor) 145 mg PO DAILY [facility] [place] Last Admin: 08/29/17 11:05 Dose: 145 mg Gabapentin (Neurontin) 300 mg PO Q8 [facility] [place] Last Admin: 08/29/17 05:08 Dose: 300 mg Glimepiride (Amaryl) 4 mg PO BID [facility] [place] Last Admin: 08/29/17 11:04 Dose: 4 mg Piperacillin Sod/Tazobactam Sod (Zosyn 2.25 Gm Iv Premix) 2.25 gm in 50 mls @ 100 mls/hr IVPB Q6H [facility] [place] Last Admin: 08/29/17 12:24 Dose: Not Given Acyclovir 500 mg/ Dextrose 100 mls @ 100 mls/hr IV Q12H [facility] [place] Last Admin: 08/29/17 06:08 Dose: 100 mls/hr Ibuprofen (Motrin Tab) 400 mg PO TID PRN PRN Reason: Pain, Mild (1-3) Last Admin: 08/28/17 14:25 Dose: 400 mg Insulin Aspart (Novolog Mix 70/30 (70/30 Units/Ml)) 25 units SC BIDAC [facility] [place] Last Admin: 08/29/17 11:06 Dose: Not Given Insulin Aspart (Novolog) 0 unit SC ACHS [facility] [place] PRN Reason: Protocol Last Admin: 08/29/17 12:15 Dose: 6 unit Insulin Glargine (Lantus) 20 unit SC HS [facility] [place] Last Admin: 08/28/17 22:06 Dose: 20 unit Ketorolac Tromethamine (Toradol) 15 mg IVP Q8H PRN PRN Reason: Pain, severe (8-10) Last Admin: 08/29/17 12:14 Dose: 15 mg Nifedipine (Procardia Xl) 90 mg PO DAILY [facility] [place] Last Admin: 08/29/17 11:06 Dose: 90 mg Rosuvastatin Calcium (Crestor) 10 mg PO HS [facility] [place] Last Admin: 08/28/17 22:05 Dose: 10 mg Sertraline HCl (Zoloft) 100 mg PO DAILY [facility] [place] Last Admin: 08/29/17 11:05 Dose: 100 mg Sitagliptin Phosphate (Januvia) 100 mg PO DAILY [facility] [place] Last Admin: 08/29/17 11:04 Dose: 100 mg - Labs Labs: 08/29/17 11:46 08/29/17 11:46 Assessment and Plan (1) Cellulitis of scalp Status: Acute (2) Uncontrolled diabetes mellitus Status: Acute
== END 2017-08-29 16:11 | disposition home or self-care (01) | DRG 603 ==
LOC: C.ER 16:45 → C.9E 20:02 → C.3T 21:18 → OBSVTOIN 08-21 17:42
PROVIDERS: ADMIT Internal Medicine Nephrology; ATTEND Internal Medicine Nephrology
DX: L03.811 Cellulitis of head [any part, except face] (principal); N17.9 Acute kidney failure, unspecified; K81.0 Acute cholecystitis; B01.9 Varicella without complication; E11.65 Type 2 diabetes mellitus with hyperglycemia; I10 Essential (primary) hypertension; E78.00 Pure hypercholesterolemia, unspecified; F32.9 Major depressive disorder, single episode, unspecified; E87.6 Hypokalemia; G47.33 Obstructive sleep apnea (adult) (pediatric); F41.0 Panic disorder [episodic paroxysmal anxiety]; R55 Syncope and collapse; I25.10 Atherosclerotic heart disease of native coronary artery without angina pectoris; Z87.891 Personal history of nicotine dependence; E78.1 Pure hyperglyceridemia; R07.9 Chest pain, unspecified; Z79.4 Long term (current) use of insulin